=== PATIENT | female | born 1975 | race Caucasian/White ===

== ENCOUNTER 2024-04-23 13:14 | Outpatient (RCR) | payer MEDICAID, SELFPAY ==
--- NOTE | 2024-04-23 15:49 | CTCCONSULT_ITS ---
[facility] [address] [place], [place] [address] Consultation Note Date: 04/23/2024 MR#: [id number] Name: SUBHASH OSEGUERA : 1975 Dx: C50.112 Malignant neoplasm of central portion of left female breast Attending physician. Brigitte Espinoza [facility] Reason for consultation. Patient with recent diagnosis of left breast CA referred to the cancer [facility] er History of Present Illness: Patient is a 48-year-old lady noted to have a palpable left breast centra l region with ultrasound 02/24/2024 revealing BI-RADS 4. This is also confirmed by mammogram and bio psy 04/01/2024 revealed infiltrating ductal carcinoma ER/[place] positive Ki-67 30%. HER2/elio by FISH was negative. Patient now referred to the cancer treatment center. Past Medical History: Asthma history of tubal ligation tonsillectomy Meds. Melatonin Allergies none to meds Social History: 2 pregnancies 2 births works as a care provider Review of Systems: [place] the breast lump several months ago Physical Exam: General: Adequately nourished appearing lady no acute distress HEENT: Atraumatic normocephalic extraocular is intact no oral lesion no cervical or supraclavicular a denopathy. CV: Breast not examined today chest clear to auscultation heart regular rate and rhythm ABD: soft and organomegaly or tenderness EXT: No signs of clubbing or edema Assessment: Pt with T2 sized left retroareolar breast lesion. Ultrasound-guided biopsy positive for invasive ductal carcinoma ER/[place] positive HER2/elio negative by FISH. Plan:1. Patient to see Dr. Serrano medical oncologist soon. 2. Also has appointment with general surgeon 3. Patient was given various scenarios by which adjuvant therapy will be offered patient. 4. Thank you very much for allowing me to evaluate this patient. Cc: Brigitte Espinoza, [facility] Electronically signed by: Chau Hickey MD, DABR 04/23/2024 3:47 PM
== END 2024-05-12 23:59 | disposition home or self-care (01) ==
LOC: SCTC 13:14
PROVIDERS: PCP Student in an Organized Health Care Education/Training Program; Referring Provider Student in an Organized Health Care Education/Training Program; Visit Provider Internal Medicine Hematology & Oncology
DX: C50.112 Malignant neoplasm of central portion of left female breast (principal); Z17.0 Estrogen receptor positive status [ER+]; Z17.21 Progesterone receptor positive status; Z17.32 Human epidermal growth factor receptor 2 negative status
CPT/HCPCS: 99213; G0463

== ENCOUNTER 2024-05-20 08:25 | Outpatient (RCR) | payer MEDICAID, SELFPAY | END 2024-06-12 23:59 | disposition home or self-care (01) | LOC: SCTC 08:25 | PROVIDERS: PCP Student in an Organized Health Care Education/Training Program; Referring Provider Student in an Organized Health Care Education/Training Program; Visit Provider Internal Medicine Hematology & Oncology | DX: C50.112 Malignant neoplasm of central portion of left female breast (principal); Z17.0 Estrogen receptor positive status [ER+]; Z17.21 Progesterone receptor positive status; Z17.32 Human epidermal growth factor receptor 2 negative status | CPT/HCPCS: Q3014 ==

== ENCOUNTER → 2024-05-27 | Outpatient (CLI) | payer MEDICAID, SELFPAY ==
[2024-05-27 09:48] LABS: Basophils % (Auto) 0 % (0-2.5); Eosinophils # (Auto) 0.2 Thou/mm3 (0.0-0.5); Eosinophils % (Auto) 4 % (0-10); Hematocrit 43.2 % (36.0-46.0); Hemoglobin 14.6 g/dL (12.0-16.0); Immature Granulocytes % (Auto) 0 % (0-0); Immature Granulocytes Auto 0.01 Thou/mm3 (0.00-0.00); Lymphocytes # (Auto) 1.8 Thou/mm3 (1.0-4.8); Lymphocytes % (Auto) 38 % (10-50); Mean Corpuscular HGB Conc 33.8 g/dl (31.0-37.0); Mean Corpuscular Hemoglobin 29.9 pg (25.0-35.0); Mean Corpuscular Volume 88 fL (80-100); Monocytes # (Auto) 0.4 Thou/mm3 (0.0-0.8); Monocytes % (Auto) 8 % (0-12); Neutrophils # (Auto) 2.4 Thou/mm3 (1.8-7.7); Neutrophils % (Auto) 50 % (37-80); Nucleated Red Blood Cell % 0 /100 WBC (0); Platelet Count 305 Thou/mm3 (140-440); RDW Standard Deviation 37.1 fL (36.4-46.3); Red Blood Count 4.89 Miln/mm3 (4.00-5.20); White Blood Count 4.9 Thou/mm3 (3.6-11.0)
[2024-05-27 09:53] LABS: Alanine Aminotransferase 28 U/L (10-49); Albumin, Serum 4.8 gm/dL (3.5-5.0); Alkaline Phosphatase 102 U/L (46-116); Anion Gap 5 (7-16); Aspartate Amino Transferase 22 U/L (0-34); BUN/Creatinine Ratio 19 Ratio (12-20); Bilirubin,Total 0.6 mg/dL (0.3-1.2); Blood Urea Nitrogen 15 mg/dL (9-23); Calcium 9.7 mg/dL (8.3-10.6); Calcium (Corrected) 9.7 mg/dL (8.5-10.1); Carbon Dioxide 30.4 mMol/L (20.0-31.0); Chloride 105 mMol/L (98-107); Creatinine (Component) 0.8 mg/dL (0.6-1.3); Globulin 2.4 gm/dL (2.3-3.5); Glucose 109 mg/dL (74-106); Osmolality,Calculated 281 (275-295); Potassium 5.2 mMol/L (3.4-5.1); Sodium 140 mMol/L (136-145); Total Protein 7.2 gm/dL (5.7-8.2); eGFR > 60 See Note
[2024-05-27 10:18] LABS: CA 15-3 17.5 U/mL (<32.4)
== END | disposition home or self-care (01) ==
LOC: SCTO 08:18
PROVIDERS: PCP Physician Assistant; Referring Provider Internal Medicine Hematology & Oncology; Visit Provider Internal Medicine Hematology & Oncology
DX: C50.112 Malignant neoplasm of central portion of left female breast (principal)
CPT/HCPCS: 36415; 80053; 85025; 86300

== ENCOUNTER 2024-06-05 08:55 | Day surgery (SDC) | payer MEDICAID, SELFPAY ==
[2024-06-03 09:40] VITALS: BMI 44.6
--- NOTE | 2024-06-03 09:51 | EKG_ITS ---
[facility] Test Date: 2024-06-03 Pat Name: SUBHASH OSEGUERA Department: Room: - Gender: Female Panel Sewer: BEVERLY : 1975 Requested By: Felix Harris Order Number: [id number] Reading MD: Felix Harris Measurements Intervals Madeline Rate: 58 P: 35 AK: 168 QRS: -26 QRSD: 89 T: 37 QT: 400 QTc: 394 Interpretive Statements SINUS BRADYCARDIA BORDERLINE LEFT AXIS DEVIATION No previous ECG available for comparison /store/S0/[id number].pdf
[2024-06-03 11:12] LABS: Basophils # (Auto) 0.1 Thou/mm3 (0.0-0.2); Basophils % (Auto) 1 % (0-2.5); Eosinophils # (Auto) 0.3 Thou/mm3 (0.0-0.5); Eosinophils % (Auto) 5 % (0-10); Hematocrit 42.8 % (36.0-46.0); Hemoglobin 14.5 g/dL (12.0-16.0); Immature Granulocytes % (Auto) 0 % (0-0); Immature Granulocytes Auto 0.01 Thou/mm3 (0.00-0.00); Lymphocytes # (Auto) 2.4 Thou/mm3 (1.0-4.8); Lymphocytes % (Auto) 40 % (10-50); Mean Corpuscular HGB Conc 33.9 g/dl (31.0-37.0); Mean Corpuscular Hemoglobin 29.7 pg (25.0-35.0); Mean Corpuscular Volume 88 fL (80-100); Monocytes # (Auto) 0.5 Thou/mm3 (0.0-0.8); Monocytes % (Auto) 9 % (0-12); Neutrophils # (Auto) 2.6 Thou/mm3 (1.8-7.7); Neutrophils % (Auto) 44 % (37-80); Nucleated Red Blood Cell % 0 /100 WBC (0); Platelet Count 290 Thou/mm3 (140-440); RDW Standard Deviation 37.3 fL (36.4-46.3); Red Blood Count 4.89 Miln/mm3 (4.00-5.20); White Blood Count 5.9 Thou/mm3 (3.6-11.0)
[2024-06-03 11:20] LABS: Alanine Aminotransferase 29 U/L (10-49); Albumin, Serum 4.6 gm/dL (3.5-5.0); Albumin/Globulin Ratio 1.7 (1.2-2.2); Alkaline Phosphatase 109 U/L (46-116); Anion Gap 4 (7-16); Aspartate Amino Transferase 30 U/L (0-34); BUN/Creatinine Ratio 16 Ratio (12-20); Bilirubin,Total 0.5 mg/dL (0.3-1.2); Blood Urea Nitrogen 14 mg/dL (9-23); Calcium 9.7 mg/dL (8.3-10.6); Calcium (Corrected) 9.7 mg/dL (8.5-10.1); Carbon Dioxide 30.1 mMol/L (20.0-31.0); Chloride 105 mMol/L (98-107); Creatinine (Component) 0.9 mg/dL (0.6-1.3); Estimated Creatinine Clearance 104.7 mL/min (>60); Globulin 2.7 gm/dL (2.3-3.5); Glucose 99 mg/dL (74-106); Osmolality,Calculated 278 (275-295); Partial Thromboplastin Time 25.4 Seconds (22.0-36.0); Prothrombin Time 10.5 Seconds (9.0-12.2); Sodium 139 mMol/L (136-145); Total Protein 7.3 gm/dL (5.7-8.2); eGFR > 60 See Note
[2024-06-05] VITALS (8 sets, daily range): BP systolic 94–120; BP diastolic 57–78; PULSE 53–80; RESP 12–20; TEMP 36.2–36.5; O2SAT 93–99; BMI 44.4
--- NOTE | 2024-06-05 06:49 | XR_ITS ---
Examination: AP chest single view Technique one AP portable supine chest single view Exam date and time: June 05, 2024 11:20 AM INDICATIONS: Port-A-Cath insertion today. FINDINGS: Right internal jugular Port-A-Cath line projects right ventricle Prominent vascular congestion with enlargement cardiac contour No pneumothorax IMPRESSION: Right internal jugular Port-A-Cath line projects right ventricle
[2024-06-05] MEDS: RINGERS LACTATED 1000 ML 1,000 ML 20 ML IV (09:57)
[2024-06-05] MEDS: MIDAZOLAM INJ 1 MG/ML VIAL 2 ML 2 MG IV (10:11)
--- NOTE | 2024-06-05 12:22 | SUR.PHASEI ---
1222: Pt. AAOx4, vitals stable, breathing unlabored, no complaint of pain or nausea, dressing to right chest and neck CDI, no active bleed noted, report received from Bentley RAMSEY and MD Daniel.
--- NOTE | 2024-06-05 12:32 | PD.SUROPNT ---
Date of Procedure 06/05/24 Pre Op Diagnosis Carcinoma of the left breast requiring chemotherapy Stricture of veins Post Op Diagnosis Same Procedure Insertion of a Port-A-Cath through the right jugular vein using ultrasound guidance Findings Patient is morbidly obese and therefore subclavian could not be even seen on the ultrasound. Therefore I used a right jugular vein to insert regular sized Port-A-Cath called profuse Procedure Description After the patient was brought to the operating room he was placed in supine position. Patient is morbidly obese and it was difficult to see the subclavian vein using the ultrasound. Site-Rite ultrasound was used to identify the right jugular vein and I chose this for insertion of the Port-A-Cath. After the patient's chest and neck were prepped with chloreprep solution and draped I used a mini stick to get into the right jugular vein. Then I passed a small guidewire measuring 0.018 inch in diameter into the vein. Then this was switched over to a catheter to accommodate larger guidewire measuring 0.035 inches in diameter which was basically a J-wire. Then I used a 9 Ethiopian valved vessel dilator over the guidewire which was then pulled out. Then I introduced a 8 Ethiopian polyurethane catheter from the [employer] and positioned it on the distal part of the superior vena cava. An x-ray was obtained to confirm the position of the tip. The tip was about 20 cm from the insertion site. Then I made a small pocket 5 cm's below the entry site on the right chest below the clavicle to accommodate the port after injecting local anesthesia with 1% Xylocaine. Then I tunneled the polyurethane catheter from the entry site to this pocket in the chest wall and I connected it to regular port from [employer] called profuse using a catheter lock. Excellent blood return was obtained at the end of the procedure and this was flushed with heparinized saline. Then the port was attached to the chest wall muscle using 0 Ethibond sutures about 4 of them subcutaneous tissues was closed with 3-0 chromic and the skin by 5-0 nylon stitches. Dressing was applied with Adaptic and 4 x 4 and the patient tolerated the procedure well and left operating room in stable condition. Anesthesia other (General LMA) Pathology / specimen None Estimated Blood Loss 30 Surgeon Angel Mishra MD Surgical Staff Operation Date: 06/05/24 11:00 Case Staff Anesthesiologist: Giovani Pruitt RN First Assistant: Mariel Benitez
--- NOTE | 2024-06-05 12:41 | XR_ITS ---
Examination: AP chest single view Technique one AP portable upright chest single view Exam date 9: June 05, 2024 1250 hours INDICATIONS: Postop Port-A-Cath insertion FINDINGS: Right internal jugular Port-A-Cath tip SVC satisfactory position No pneumothorax Mild enlargement cardiac contour IMPRESSION: Right internal jugular Port-A-Cath tip SVC satisfactory position
[2024-06-05] MEDS: fentaNYL CIT INJ 50 mCg/ML AMP 2ML 25 MCG IV (12:46)
[2024-06-05] MEDS: ONDANSETRON INJ 2 MG/ML INJ 2 ML 4 MG IV (12:46)
[2024-06-05] MEDS: METOCLOPRAMIDE INJ 5 MG/ML VIAL 2 ML 10 MG IVP (12:55)
[2024-06-05] MEDS: ACETAMINOPHEN IVPB 1,000 MG/100 ML VIAL 250 MG IV (13:04)
--- NOTE | 2024-06-05 13:25 | SUR.PHASEII ---
1325: Pt. AAOx4, vitals stable, breathing unlabored, no complaint of pain or nausea, dressing to right upper chest and neck CDI, no active bleed noted, pt. tolerated sips of water well, pt. ambulated to wheelchair with steady gait and no assist, no complications. Gave discharge instructions to the pt. and his ride, both verbalized understanding and had no further questions. Pt. left with all personal belongings.
== END 2024-06-05 13:25 | disposition home or self-care (01) ==
PROVIDERS: PCP Family Medicine; Referring Provider Surgery; Visit Provider Surgery
PROC: (CPT 36561; principal; 2024-06-05 10:45)
DX: I87.1 Compression of vein (principal); E66.01 Morbid (severe) obesity due to excess calories; C50.912 Malignant neoplasm of unspecified site of left female breast; Z01.810 Encounter for preprocedural cardiovascular examination; Z68.41 Body mass index [BMI] 40.0-44.9, adult
CPT/HCPCS: 36561; 36415; 71045; 71046; 80053; 85025; 85610; 85730; 93005; A4217; A4649; C1788; C1894; J0131; J0461; J1100; J1643; J2250; J2405; J2704; J2765; J3010; J7120

== ENCOUNTER 2024-07-07 10:27 | Outpatient (RCR) | payer MEDICAID, SELFPAY ==
[2024-06-19 10:53] LABS: Basophils % (Auto) 1 % (0-2.5); Eosinophils # (Auto) 0.2 Thou/mm3 (0.0-0.5); Eosinophils % (Auto) 3 % (0-10); Hematocrit 39.8 % (36.0-46.0); Hemoglobin 13.7 g/dL (12.0-16.0); Immature Granulocytes % (Auto) 0 % (0-0); Immature Granulocytes Auto 0.03 Thou/mm3 (0.00-0.00); Lymphocytes # (Auto) 2.6 Thou/mm3 (1.0-4.8); Lymphocytes % (Auto) 32 % (10-50); Mean Corpuscular HGB Conc 34.4 g/dl (31.0-37.0); Mean Corpuscular Hemoglobin 30.1 pg (25.0-35.0); Mean Corpuscular Volume 88 fL (80-100); Monocytes # (Auto) 0.7 Thou/mm3 (0.0-0.8); Monocytes % (Auto) 9 % (0-12); Neutrophils # (Auto) 4.6 Thou/mm3 (1.8-7.7); Neutrophils % (Auto) 56 % (37-80); Nucleated Red Blood Cell % 0 /100 WBC (0); Platelet Count 295 Thou/mm3 (140-440); RDW Standard Deviation 37.9 fL (36.4-46.3); Red Blood Count 4.55 Miln/mm3 (4.00-5.20); White Blood Count 8.2 Thou/mm3 (3.6-11.0)
[2024-06-19 11:19] LABS: Alanine Aminotransferase 19 U/L (10-49); Albumin, Serum 4.2 gm/dL (3.5-5.0); Albumin/Globulin Ratio 1.8 (1.2-2.2); Alkaline Phosphatase 106 U/L (46-116); Anion Gap 8 (7-16); Aspartate Amino Transferase 17 U/L (0-34); BUN/Creatinine Ratio 16 Ratio (12-20); Bilirubin,Total 0.4 mg/dL (0.3-1.2); Blood Urea Nitrogen 11 mg/dL (9-23); Calcium 8.8 mg/dL (8.3-10.6); Calcium (Corrected) 8.8 mg/dL (8.5-10.1); Carbon Dioxide 25.4 mMol/L (20.0-31.0); Chloride 105 mMol/L (98-107); Creatinine (Component) 0.7 mg/dL (0.6-1.3); Globulin 2.4 gm/dL (2.3-3.5); Glucose 88 mg/dL (74-106); Osmolality,Calculated 274 (275-295); Potassium 4.1 mMol/L (3.4-5.1); Sodium 138 mMol/L (136-145); Total Protein 6.6 gm/dL (5.7-8.2); eGFR > 60 See Note
[2024-06-19 11:34] LABS: CA 15-3 15.5 U/mL (<32.4)
--- NOTE | 2024-06-21 22:12 | CTCFLWUP_ITS ---
Patient: SUBHASH OSEGUERA : 1975 Page 2 of 3 FOLLOW UP NOTE DATE OF SERVICE: 06/18/2024 NAME: SUBHASH OSEGUERA ACCOUNT: [id number] : 1975 AGE: 48 INTERVAL HISTORY: Doing well with no new problem ONCOLOGY HISTORY: DIAGNOSIS: Malignant neoplasm of central portion of left female breast [ICD10] C50.112 DATE OF DIAGNOSIS: 02/24/2024 left breast with invasive ductal carcinoma ER/[place] positive STAGE/TNM: T2NOMO TREATMENT HISTORY: Care?Plan Start?Date Cycle Day Intent AC?4?cy?DD?Taxol?wkly?12?wks 05/27/2024 2 7 Primary-Neoadjuvant HISTORY OF PRESENT ILLNESS: 48-year-old female with diagnosis of breast cancer . patient self palpated mass and found with cancer. Patient s grandmother of breast cancer. Patient is single parent.patient is worried. 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 melatonin - 3 mg Every day before sleep Medications Last Reconciled by Soha Schwartz MD on 05/20/2024 ALLERGIES: No Known Allergies REVIEW OF SYSTEMS: A complete 14-point review of systems was performed and is negative except as noted in interval history. PHYSICAL EXAMINATION: VITAL SIGNS: Temperature?99.1, B/P?133/92, Oxygen?Saturation?95% Weight?289?lbs (Change?since?05/20/24:?8?lbs) PAIN: 0 - No pain ECOG Performance Status: 0 - Asymptomatic and fully active GENERAL APPEARANCE: Appears well, in no apparent distress, appropriately interactive. HEENT: Normocephalic, no temporal wasting, normal conjunctiva, no scleral icterus, normal hearing, lips without lesions, neck normal range of motion. CARDIOVASCULAR: Not assessed. PULMONARY: Normal respiratory effort, no respiratory distress or use of accessory muscles, speaking in full sentences, no tachypnea. EXTREMITIES: No pedal edema or cyanosis. SKIN: Normal skin appearance. NEUROLOGIC: Alert and oriented x4. PSHYCHIATRIC: Appropriate affect, mood sad and anxious , behavior normal, intact thought and speech. Breast exam showed redness and indurated skin. LABORATORY DATA: I have personally reviewed and interpreted each of the patient?s relevant lab tests, abnormal findings are below: Date 06/19/24 ??WHITE?BLOOD?COUNT?(Thou/mm3) 8.2 ??RED?BLOOD?COUNT?(Miln/mm3) 4.55 ??HEMOGLOBIN?(gm/dl) 13.7 ??HEMATOCRIT?(%) 39.8 ??PLATELET?COUNT?(Thou/mm3) 295 ??NEUTROPHILS?%,?AUTO?(%) 56 ??LYMPH?%,?AUTO?(%) 32 ??NEUTROPHILS,?AUTO?(Thou/mm3) 4.6 ASSESSMENT/PLAN: ER [place] positive breast cancer I reviewed echocardiogram shows concentric hypertrophy Patient likely have uncontrolled blood pressure. Will refer to cardiology for tighter control of blood pressure Will proceed with chemotherapy AC and Taxol CBC CMP before chemotherapy Refer to cardiology RETURN TO CLINIC: 4 weeks BILLING AND COMPLIANCE: I reviewed external records from providers outside my specialty as summarized above. I spent a total of 50 minutes on this patient?s care on the day of their visit excluding time spent related to any billed procedures. This time includes time spent with the patient as well as time spent documenting in the medical record, reviewing patients records and tests, obtaining history, placing orders, communicating with other healthcare professionals, counseling the patient, family or caregiver, and/or care coordination for the diagnoses above. Electronically Signed by: Calderon Serrano MD T: 10:10 PM CC: PCP: Howie Le Referring: Howie Le This document was completed utilizing speech recognition software. Grammatical errors, random word insertions, pronoun errors, and incomplete sentences are an occasional consequence of this system due to software limitations, ambient noise, and hardware issues. Any formal questions or concerns about the content, text or information contained within the body of this dictation should be directly addressed to the provider for clarification.
[2024-07-03 09:38] LABS: Basophils % (Auto) 1 % (0-2.5); Eosinophils # (Auto) 0.1 Thou/mm3 (0.0-0.5); Eosinophils % (Auto) 1 % (0-10); Hemoglobin 12.9 g/dL (12.0-16.0); Immature Granulocytes % (Auto) 20 % (0-0); Immature Granulocytes Auto 1.54 Thou/mm3 (0.00-0.00); Lymphocytes # (Auto) 1.9 Thou/mm3 (1.0-4.8); Lymphocytes % (Auto) 25 % (10-50); Mean Corpuscular HGB Conc 33.9 g/dl (31.0-37.0); Mean Corpuscular Hemoglobin 29.6 pg (25.0-35.0); Mean Corpuscular Volume 87 fL (80-100); Monocytes # (Auto) 0.5 Thou/mm3 (0.0-0.8); Monocytes % (Auto) 6 % (0-12); Neutrophils # (Auto) 3.8 Thou/mm3 (1.8-7.7); Neutrophils % (Auto) 49 % (37-80); Nucleated Red Blood Cell % 0 /100 WBC (0); Platelet Count 254 Thou/mm3 (140-440); RDW Standard Deviation 37.2 fL (36.4-46.3); Red Blood Count 4.36 Miln/mm3 (4.00-5.20); White Blood Count 7.9 Thou/mm3 (3.6-11.0)
[2024-07-03 09:55] LABS: Alanine Aminotransferase 14 U/L (10-49); Albumin, Serum 3.9 gm/dL (3.5-5.0); Albumin/Globulin Ratio 1.6 (1.2-2.2); Alkaline Phosphatase 118 U/L (46-116); Anion Gap 9 (7-16); Aspartate Amino Transferase 11 U/L (0-34); BUN/Creatinine Ratio 14 Ratio (12-20); Bilirubin,Total 0.2 mg/dL (0.3-1.2); Blood Urea Nitrogen 10 mg/dL (9-23); Calcium 8.8 mg/dL (8.3-10.6); Calcium (Corrected) 8.9 mg/dL (8.5-10.1); Carbon Dioxide 26.1 mMol/L (20.0-31.0); Chloride 106 mMol/L (98-107); Creatinine (Component) 0.7 mg/dL (0.6-1.3); Globulin 2.4 gm/dL (2.3-3.5); Glucose 104 mg/dL (74-106); Osmolality,Calculated 280 (275-295); Potassium 3.9 mMol/L (3.4-5.1); Sodium 141 mMol/L (136-145); Total Protein 6.3 gm/dL (5.7-8.2); eGFR > 60 See Note
[2024-07-03 10:18] LABS: CA 15-3 19.3 U/mL (<32.4)
[2024-07-03 10:26] LABS: Path Review Blood Smear Sent to Pathologist
== END 2024-07-10 23:59 | disposition home or self-care (01) ==
LOC: SCTC 10:27
PROVIDERS: Internal Medicine Hematology & Oncology; PCP Family Medicine; Referring Provider Family Medicine; Visit Provider Radiology Therapeutic Radiology
DX: Z51.11 Encounter for antineoplastic chemotherapy (principal); C50.112 Malignant neoplasm of central portion of left female breast; Z17.0 Estrogen receptor positive status [ER+]; Z17.21 Progesterone receptor positive status; Z17.32 Human epidermal growth factor receptor 2 negative status
CPT/HCPCS: 36591; 80053; 85025; 86300; 96367; 96372; 96409; 96411; 96413; 96417; 99212; 99424; 99425; A4216; J1100; J1453; J1642; J2405; J2506; J7040; J7050; J9000; J9075; G0463

== ENCOUNTER 2024-08-10 08:12 | Outpatient (RCR) | payer MEDICAID, SELFPAY ==
[2024-07-17 12:27] LABS: Basophils # (Auto) 0.1 Thou/mm3 (0.0-0.2); Basophils % (Auto) 1 % (0-2.5); Eosinophils % (Auto) 0 % (0-10); Hematocrit 37.8 % (36.0-46.0); Hemoglobin 12.7 g/dL (12.0-16.0); Immature Granulocytes % (Auto) 15 % (0-0); Immature Granulocytes Auto 0.89 Thou/mm3 (0.00-0.00); Lymphocytes # (Auto) 1.5 Thou/mm3 (1.0-4.8); Lymphocytes % (Auto) 25 % (10-50); Mean Corpuscular HGB Conc 33.6 g/dl (31.0-37.0); Mean Corpuscular Hemoglobin 29.6 pg (25.0-35.0); Mean Corpuscular Volume 88 fL (80-100); Monocytes # (Auto) 0.6 Thou/mm3 (0.0-0.8); Monocytes % (Auto) 11 % (0-12); Neutrophils # (Auto) 2.8 Thou/mm3 (1.8-7.7); Neutrophils % (Auto) 48 % (37-80); Nucleated Red Blood Cell # 0.02 Thou/mm3 (0.00-0.00); Nucleated Red Blood Cell % 0 /100 WBC (0); Platelet Count 298 Thou/mm3 (140-440); RDW Standard Deviation 39.2 fL (36.4-46.3); Red Blood Count 4.29 Miln/mm3 (4.00-5.20); White Blood Count 5.8 Thou/mm3 (3.6-11.0)
[2024-07-17 12:38] LABS: Alanine Aminotransferase 17 U/L (10-49); Albumin/Globulin Ratio 1.6 (1.2-2.2); Alkaline Phosphatase 119 U/L (46-116); Anion Gap 8 (7-16); Aspartate Amino Transferase 18 U/L (0-34); BUN/Creatinine Ratio 10 Ratio (12-20); Bilirubin,Total 0.2 mg/dL (0.3-1.2); Blood Urea Nitrogen 7 mg/dL (9-23); Calcium 8.9 mg/dL (8.3-10.6); Calcium (Corrected) 8.9 mg/dL (8.5-10.1); Carbon Dioxide 27.3 mMol/L (20.0-31.0); Chloride 108 mMol/L (98-107); Creatinine (Component) 0.7 mg/dL (0.6-1.3); Globulin 2.5 gm/dL (2.3-3.5); Glucose 91 mg/dL (74-106); Osmolality,Calculated 282 (275-295); Potassium 3.7 mMol/L (3.4-5.1); Sodium 143 mMol/L (136-145); Total Protein 6.5 gm/dL (5.7-8.2); eGFR > 60 See Note
[2024-07-31 11:33] LABS: Basophils # (Auto) 0.1 Thou/mm3 (0.0-0.2); Basophils % (Auto) 2 % (0-2.5); Eosinophils % (Auto) 1 % (0-10); Hematocrit 35.4 % (36.0-46.0); Hemoglobin 12.1 g/dL (12.0-16.0); Immature Granulocytes % (Auto) 17 % (0-0); Immature Granulocytes Auto 0.95 Thou/mm3 (0.00-0.00); Lymphocytes # (Auto) 1.6 Thou/mm3 (1.0-4.8); Lymphocytes % (Auto) 28 % (10-50); Mean Corpuscular HGB Conc 34.2 g/dl (31.0-37.0); Mean Corpuscular Hemoglobin 29.7 pg (25.0-35.0); Mean Corpuscular Volume 87 fL (80-100); Monocytes # (Auto) 0.6 Thou/mm3 (0.0-0.8); Monocytes % (Auto) 11 % (0-12); Neutrophils # (Auto) 2.4 Thou/mm3 (1.8-7.7); Neutrophils % (Auto) 42 % (37-80); Nucleated Red Blood Cell # 0.03 Thou/mm3 (0.00-0.00); Nucleated Red Blood Cell % 1 /100 WBC (0); Platelet Count 301 Thou/mm3 (140-440); RDW Standard Deviation 39.6 fL (36.4-46.3); Red Blood Count 4.08 Miln/mm3 (4.00-5.20); White Blood Count 5.7 Thou/mm3 (3.6-11.0)
[2024-07-31 11:51] LABS: Cardiac Risk Estimate 4.5 RATIO (3.7-5.6); Cholesterol 138 mg/dL (132-200); HDL Cholesterol 31 mg/dL (40-60); LDL Cholesterol,Calculated 80 mg/dL (0-130); Triglycerides 136 mg/dL (30-150)
[2024-07-31 11:59] LABS: Alanine Aminotransferase 14 U/L (10-49); Albumin, Serum 4.2 gm/dL (3.5-5.0); Albumin/Globulin Ratio 1.7 (1.2-2.2); Alkaline Phosphatase 113 U/L (46-116); Anion Gap 10 (7-16); Aspartate Amino Transferase 20 U/L (0-34); BUN/Creatinine Ratio 9 Ratio (12-20); Bilirubin,Total 0.2 mg/dL (0.3-1.2); Blood Urea Nitrogen 6 mg/dL (9-23); Calcium 9.2 mg/dL (8.3-10.6); Calcium (Corrected) 9.2 mg/dL (8.5-10.1); Carbon Dioxide 25.1 mMol/L (20.0-31.0); Chloride 105 mMol/L (98-107); Creatinine (Component) 0.7 mg/dL (0.6-1.3); Globulin 2.5 gm/dL (2.3-3.5); Glucose 92 mg/dL (74-106); Osmolality,Calculated 277 (275-295); Potassium 4.4 mMol/L (3.4-5.1); Sodium 140 mMol/L (136-145); Total Protein 6.7 gm/dL (5.7-8.2); eGFR > 60 See Note
[2024-07-31 12:07] LABS: CA 15-3 34.2 U/mL (<32.4)
[2024-08-07 11:40] LABS: Basophils # (Auto) 0.1 Thou/mm3 (0.0-0.2); Basophils % (Auto) 1 % (0-2.5); Eosinophils % (Auto) 1 % (0-10); Hematocrit 33.5 % (36.0-46.0); Hemoglobin 11.8 g/dL (12.0-16.0); Immature Granulocytes % (Auto) 2 % (0-0); Immature Granulocytes Auto 0.12 Thou/mm3 (0.00-0.00); Lymphocytes # (Auto) 1.3 Thou/mm3 (1.0-4.8); Lymphocytes % (Auto) 23 % (10-50); Mean Corpuscular HGB Conc 35.2 g/dl (31.0-37.0); Mean Corpuscular Hemoglobin 30.3 pg (25.0-35.0); Mean Corpuscular Volume 86 fL (80-100); Monocytes # (Auto) 0.9 Thou/mm3 (0.0-0.8); Monocytes % (Auto) 16 % (0-12); Neutrophils # (Auto) 3.2 Thou/mm3 (1.8-7.7); Neutrophils % (Auto) 56 % (37-80); Nucleated Red Blood Cell % 0 /100 WBC (0); Platelet Count 314 Thou/mm3 (140-440); RDW Standard Deviation 43.4 fL (36.4-46.3); White Blood Count 5.6 Thou/mm3 (3.6-11.0)
[2024-08-07 12:26] LABS: CA 15-3 33.8 U/mL (<32.4)
[2024-08-07 13:16] LABS: Alanine Aminotransferase 14 U/L (10-49); Albumin/Globulin Ratio 1.7 (1.2-2.2); Alkaline Phosphatase 90 U/L (46-116); Anion Gap 9 (7-16); Aspartate Amino Transferase 18 U/L (0-34); BUN/Creatinine Ratio 11 Ratio (12-20); Blood Urea Nitrogen 9 mg/dL (9-23); Calcium 9.1 mg/dL (8.3-10.6); Calcium (Corrected) 9.1 mg/dL (8.5-10.1); Carbon Dioxide 24.2 mMol/L (20.0-31.0); Chloride 106 mMol/L (98-107); Creatinine (Component) 0.8 mg/dL (0.6-1.3); Globulin 2.3 gm/dL (2.3-3.5); Glucose 132 mg/dL (74-106); Osmolality,Calculated 278 (275-295); Potassium 4.4 mMol/L (3.4-5.1); Sodium 139 mMol/L (136-145); Total Protein 6.3 gm/dL (5.7-8.2); eGFR > 60 See Note
[2024-08-07 14:13] LABS: Bilirubin,Total 0.4 mg/dL (0.3-1.2)
--- NOTE | 2024-08-09 22:44 | CTCFLWUP_ITS ---
Patient: SUBHASH OSEGUERA : 1975 Page 2 of 2 FOLLOW UP NOTE DATE OF SERVICE: 07/22/2024 NAME: SUBHASH OSEGUERA ACCOUNT: [id number] : 1975 AGE: 48 INTERVAL HISTORY: Doing well with no new problem ONCOLOGY HISTORY: DIAGNOSIS: Malignant neoplasm of central portion of left female breast [ICD10] C50.112 DATE OF DIAGNOSIS: 02/24/2024 left breast with invasive ductal carcinoma ER/[place] positive STAGE/TNM: T2NOMO TREATMENT HISTORY: Care?Plan Start?Date Cycle Day Intent AC?4?cy?DD?Taxol?wkly?12?wks 05/27/2024 2 7 Primary-Neoadjuvant HISTORY OF PRESENT ILLNESS: 48-year-old female with diagnosis of breast cancer . patient self palpated mass and found with cancer. Patient s grandmother of breast cancer. Patient is single parent.patient is worried. 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 melatonin - 3 mg Every day before sleep 2. Pepcid - 20 mg 1 tab Daily Medications Last Reconciled by Yi Gerardo MA on 07/22/2024 ALLERGIES: No Known Allergies REVIEW OF SYSTEMS: A complete 14-point review of systems was performed and is negative except as noted in interval history. PHYSICAL EXAMINATION: VITAL SIGNS: Temperature?97.4, B/P?107/77, Oxygen?Saturation?98% PAIN: 0 - No pain ECOG Performance Status: 0 - Asymptomatic and fully active GENERAL APPEARANCE: Appears well, in no apparent distress, appropriately interactive. HEENT: Normocephalic, no temporal wasting, normal conjunctiva, no scleral icterus, normal hearing, lips without lesions, neck normal range of motion. CARDIOVASCULAR: Not assessed. PULMONARY: Normal respiratory effort, no respiratory distress or use of accessory muscles, speaking in full sentences, no tachypnea. EXTREMITIES: No pedal edema or cyanosis. SKIN: Normal skin appearance. NEUROLOGIC: Alert and oriented x4. PSHYCHIATRIC: Appropriate affect, mood sad and anxious , behavior normal, intact thought and speech. Breast exam showed redness and indurated skin. LABORATORY DATA: I have personally reviewed and interpreted each of the patient?s relevant lab tests, abnormal findings are below: Date 07/31/24 08/07/24 ??WHITE?BLOOD?COUNT?(Thou/mm3) 5.7 5.6 ??RED?BLOOD?COUNT?(Miln/mm3) 4.08 3.90?L ??HEMOGLOBIN?(gm/dl) 12.1 11.8?L ??HEMATOCRIT?(%) 35.4?L 33.5?L ??PLATELET?COUNT?(Thou/mm3) 301 314 ??NEUTROPHILS?%,?AUTO?(%) 42 56 ??LYMPH?%,?AUTO?(%) 28 23 ??NEUTROPHILS,?AUTO?(Thou/mm3) 2.4 3.2 ??GLUCOSE,RANDOM?(mg/dL) 92 132?H ??BLOOD?UREA?NITROGEN?(mg/dL) 6?L 9 ??CREATININE?(mg/dL) 0.70 0.80 ??SODIUM?(mmol/L) 140 139 ??POTASSIUM?(mmol/L) 4.4 4.4 ??CHLORIDE?(mmol/L) 105 106 ??CrCl?(CandG)?(ml/min) 131.08 115.37 ??AST/SGOT?(Unit/L) 20 18 ??ALT/SGPT?(Unit/L) 14 14 ??ALKALINE?PHOSPHATASE?(Unit/L) 113 90 ??BILIRUBIN,?TOTAL?(mg/dL) 0.2?L 0.4 ??PROTEIN?TOTAL?(gm/dl) 6.7 6.3 ??ALBUMIN,?SERUM?(gm/dl) 4.2 4.0 ??GLOBULIN?(gm/dl) 2.5 2.3 ??ALBUMIN/GLOBULIN?RATIO 1.7 1.7 ??CALCIUM,?SERUM?(mg/dL) 9.2 9.1 ??CALCIUM?SERUM?(CORRECTED)?(mg/dL) 9.2 9.1 ASSESSMENT/PLAN: ER [place] positive breast cancer I reviewed echocardiogram shows concentric hypertrophy Patient likely have uncontrolled blood pressure. Will refer to cardiology for tighter control of blood pressure Will proceed with chemotherapy AC and Taxol CBC CMP before chemotherapy Refer to cardiology ORDERS: Order # Description [id number] Comprehensive Metabolic Panel - 12 + CBC with Auto Diff + MD Follow Up 2 Months [id number] Cardiac ECHO RETURN TO CLINIC: BILLING AND COMPLIANCE: I reviewed external records from providers outside my specialty as summarized above. I spent a total of 50 minutes on this patient?s care on the day of their visit excluding time spent related to any billed procedures. This time includes time spent with the patient as well as time spent documenting in the medical record, reviewing patients records and tests, obtaining history, placing orders, communicating with other healthcare professionals, counseling the patient, family or caregiver, and/or care coordination for the diagnoses above. Electronically Signed by: Calderon Serrano MD T: 10:42 PM CC: PCP: Howie Le Referring: Howie Le This document was completed utilizing speech recognition software. Grammatical errors, random word insertions, pronoun errors, and incomplete sentences are an occasional consequence of this system due to software limitations, ambient noise, and hardware issues. Any formal questions or concerns about the content, text or information contained within the body of this dictation should be directly addressed to the provider for clarification.
== END 2024-08-10 23:59 | disposition home or self-care (01) ==
LOC: SCTC 08:12
PROVIDERS: PCP Family Medicine; Referring Provider Family Medicine; Visit Provider Internal Medicine Hematology & Oncology
DX: Z51.11 Encounter for antineoplastic chemotherapy (principal); C50.112 Malignant neoplasm of central portion of left female breast; Z17.0 Estrogen receptor positive status [ER+]; Z17.21 Progesterone receptor positive status
CPT/HCPCS: 36415; 80053; 80061; 85025; 86300; 96360; 96367; 96372; 96411; 96413; 99212; A4216; J1100; J1453; J1642; J2405; J2506; J7030; J7040; J7050; J9000; J9075; G0463

== ENCOUNTER → 2024-08-18 | Outpatient (CLI) | payer MEDICAID, SELFPAY ==
--- NOTE | 2024-08-18 | ECHO_ITS ---
Transthoracic Echo Report Ht (in): 67 Wt (lb): 275 Exam Location: Echo Lab Status: Outpatient Commercial Airplane Pilot: ANNA Aragon^^^^ Indications: Procedure Performed: BP: 117 / 78 HR: 79 Rhythm: Sinus Technical Quality: Fair MEASUREMENTS (Male / Female) Normal Values 2D ECHO LV Diastolic Diameter PLAX 5.1 cm 4.2 - 5.9 / 3.9 - 5.3 cm LV Systolic Diameter PLAX 3.5 cm IVS Diastolic Thickness 0.9 cm 0.6 - 1.0 / 0.6 - 0.9 cm LVPW Diastolic Thickness 1.0 cm 0.6 - 1.0 / 0.6 - 0.9 cm LV Relative Wall Thickness 0.4 LVOT Diameter 1.9 cm Aortic Root Diameter 3.2 cm LA Systolic Diameter LX 4.1 cm 3.0 - 4.0 / 2.7 - 3.8 cm LV Ejection Fraction MOD BP 58.0 % >= 55 % LV Cardiac Index MOD BP 1661.2 cm?/min?m? LV Ejection Fraction MOD 4C 64.2 % LV Cardiac Index MOD 4C 2095.5 cm?/min?m? LV Ejection Fraction 4C AL 68.2 % LV Cardiac Index 4C AL 2348.9 cm?/min?m? LV Ejection Fraction MOD 2C 53.3 % LV Cardiac Index MOD 2C 1204.7 cm?/min?m? LV Ejection Fraction 2C AL 54.4 % LV Cardiac Index 2C AL 1232.5 cm?/min?m? LA Volume Index 38.2 cm?/m? 16 - 28 cm?/m? Ascending Aorta Diameter 3.2 cm DOPPLER AV Peak Velocity 124.5 cm/s AV Peak Gradient 6.2 mmHg AV Mean Gradient 3.5 mmHg AV Velocity Time Integral 24.0 cm LVOT Peak Velocity 107.0 cm/s LVOT Peak Gradient 4.6 mmHg LVOT Velocity Time Integral 23.5 cm LVOT Cardiac Index 2116.8 cm?/min?m? AV Area Cont Eq vti 2.8 cm? AV Area Cont Eq pk 2.4 cm? MV Area PHT 4.0 cm? Mitral E Point Velocity 79.0 cm/s Mitral A Point Velocity 67.3 cm/s Mitral E to A Ratio 1.2 LV E' Lateral Velocity 8.0 cm/s Mitral E to LV E' Lateral Ratio 9.9 LV E' Septal Velocity 6.3 cm/s Mitral E to LV E' Septal Ratio 12.6 TR Peak Velocity 235.0 cm/s TR Peak Gradient 22.1 mmHg PV Peak Velocity 103.0 cm/s PV Peak Gradient 4.2 mmHg RVOT Peak Velocity 73.3 cm/s FINDINGS Left Ventricle Normal left ventricular size, wall thickness, systolic function. Normal left ventricular diastolic filling pattern for age. The ejection fraction is visually estimated at 55-60%. Right Ventricle The right ventricle is normal in size and systolic function. The estimated right ventricular systolic pressure, 28 mmHg. Left Atrium Upper normal left atrial size. Right Atrium The right atrium is normal by two-dimensional imaging, color flow and Doppler imaging with no structural abnormalities, no thrombus formation present. Atrial Septum The interatrial septum appears normal with no evidence of a shunt. Aorta The aorta is normal by two-dimensional, color flow and Doppler interrogation. Mitral Valve Trace mitral regurgitation. Mild mitral annular calcification. Aortic Valve The aortic valve is trileaflet and normal by two-dimensional, color flow and Doppler interrogation. There is no significant aortic valve regurgitation. Tricuspid Valve There is mild tricuspid valve regurgitation. Pulmonic Valve Trivial pulmonic valve regurgitation. Vessels The pulmonary artery appears normal. The inferior vena cava pulmonary and hepatic veins appear normal. Pericardium The pericardium is normal by two-dimensional imaging. There is no significant pericardial effusion. CONCLUSIONS Indication: Malignancy Normal LV size and function with an estimated EF of 60 to 65%. Stage I diastolic dysfunction. Normal RV size and function. Normal RVSP at 28 mmHg. Trace MR and TR Keenan Estrada (Electronically Signed) Final Date: 18 August 2024 20:01
== END | disposition home or self-care (01) ==
PROVIDERS: PCP Family Medicine; Referring Provider Internal Medicine Hematology & Oncology; Visit Provider Internal Medicine Hematology & Oncology
DX: I08.1 Rheumatic disorders of both mitral and tricuspid valves (principal); I50.30 Unspecified diastolic (congestive) heart failure; C50.112 Malignant neoplasm of central portion of left female breast
CPT/HCPCS: 93306

== ENCOUNTER 2024-09-07 07:56 | Outpatient (RCR) | payer MEDICAID, SELFPAY ==
[2024-08-31 08:22] LABS: Basophils # (Auto) 0.1 Thou/mm3 (0.0-0.2); Basophils % (Auto) 1 % (0-2.5); Eosinophils # (Auto) 0.1 Thou/mm3 (0.0-0.5); Eosinophils % (Auto) 1 % (0-10); Hematocrit 33.3 % (36.0-46.0); Hemoglobin 11.5 g/dL (12.0-16.0); Immature Granulocytes % (Auto) 1 % (0-0); Immature Granulocytes Auto 0.05 Thou/mm3 (0.00-0.00); Lymphocytes % (Auto) 19 % (10-50); Mean Corpuscular HGB Conc 34.5 g/dl (31.0-37.0); Mean Corpuscular Volume 90 fL (80-100); Monocytes % (Auto) 18 % (0-12); Neutrophils # (Auto) 3.2 Thou/mm3 (1.8-7.7); Neutrophils % (Auto) 59 % (37-80); Nucleated Red Blood Cell % 0 /100 WBC (0); Platelet Count 339 Thou/mm3 (140-440); RDW Standard Deviation 47.8 fL (36.4-46.3); Red Blood Count 3.71 Miln/mm3 (4.00-5.20); White Blood Count 5.4 Thou/mm3 (3.6-11.0)
[2024-08-31 08:48] LABS: Alanine Aminotransferase 21 U/L (10-49); Albumin, Serum 4.1 gm/dL (3.5-5.0); Albumin/Globulin Ratio 1.6 (1.2-2.2); Alkaline Phosphatase 85 U/L (46-116); Anion Gap 7 (7-16); Aspartate Amino Transferase 23 U/L (0-34); BUN/Creatinine Ratio 11 Ratio (12-20); Bilirubin,Total 0.5 mg/dL (0.3-1.2); Blood Urea Nitrogen 8 mg/dL (9-23); Calcium 8.9 mg/dL (8.3-10.6); Calcium (Corrected) 8.9 mg/dL (8.5-10.1); Chloride 108 mMol/L (98-107); Creatinine (Component) 0.7 mg/dL (0.6-1.3); Globulin 2.5 gm/dL (2.3-3.5); Glucose 144 mg/dL (74-106); Osmolality,Calculated 280 (275-295); Potassium 3.9 mMol/L (3.4-5.1); Sodium 140 mMol/L (136-145); Total Protein 6.6 gm/dL (5.7-8.2); eGFR > 60 See Note
[2024-08-31 09:15] LABS: CA 15-3 36.5 U/mL (<32.4)
[2024-09-07 08:40] LABS: Basophils # (Auto) 0.1 Thou/mm3 (0.0-0.2); Basophils % (Auto) 1 % (0-2.5); Eosinophils # (Auto) 0.1 Thou/mm3 (0.0-0.5); Eosinophils % (Auto) 2 % (0-10); Hemoglobin 11.2 g/dL (12.0-16.0); Immature Granulocytes % (Auto) 2 % (0-0); Immature Granulocytes Auto 0.12 Thou/mm3 (0.00-0.00); Lymphocytes # (Auto) 1.1 Thou/mm3 (1.0-4.8); Lymphocytes % (Auto) 20 % (10-50); Mean Corpuscular HGB Conc 33.9 g/dl (31.0-37.0); Mean Corpuscular Hemoglobin 30.6 pg (25.0-35.0); Mean Corpuscular Volume 90 fL (80-100); Monocytes # (Auto) 0.7 Thou/mm3 (0.0-0.8); Monocytes % (Auto) 13 % (0-12); Neutrophils # (Auto) 3.4 Thou/mm3 (1.8-7.7); Neutrophils % (Auto) 62 % (37-80); Nucleated Red Blood Cell % 0 /100 WBC (0); Platelet Count 367 Thou/mm3 (140-440); RDW Standard Deviation 45.7 fL (36.4-46.3); Red Blood Count 3.66 Miln/mm3 (4.00-5.20); White Blood Count 5.5 Thou/mm3 (3.6-11.0)
[2024-09-07 09:12] LABS: Alanine Aminotransferase 28 U/L (10-49); Albumin/Globulin Ratio 1.7 (1.2-2.2); Alkaline Phosphatase 91 U/L (46-116); Anion Gap 7 (7-16); Aspartate Amino Transferase 21 U/L (0-34); BUN/Creatinine Ratio 13 Ratio (12-20); Bilirubin,Total 0.4 mg/dL (0.3-1.2); Blood Urea Nitrogen 9 mg/dL (9-23); Calcium 8.9 mg/dL (8.3-10.6); Calcium (Corrected) 8.9 mg/dL (8.5-10.1); Carbon Dioxide 25.3 mMol/L (20.0-31.0); Chloride 108 mMol/L (98-107); Creatinine (Component) 0.7 mg/dL (0.6-1.3); Globulin 2.3 gm/dL (2.3-3.5); Glucose 122 mg/dL (74-106); Osmolality,Calculated 279 (275-295); Potassium 4.1 mMol/L (3.4-5.1); Sodium 140 mMol/L (136-145); Total Protein 6.3 gm/dL (5.7-8.2); eGFR > 60 See Note
[2024-09-07 09:29] LABS: CA 15-3 36.7 U/mL (<32.4)
== END 2024-09-09 23:59 | disposition home or self-care (01) ==
LOC: SCTC 07:56
PROVIDERS: PCP Family Medicine; Referring Provider Family Medicine; Visit Provider Internal Medicine Hematology & Oncology
DX: Z51.11 Encounter for antineoplastic chemotherapy (principal); C50.112 Malignant neoplasm of central portion of left female breast; Z17.0 Estrogen receptor positive status [ER+]; Z17.21 Progesterone receptor positive status; Z17.32 Human epidermal growth factor receptor 2 negative status
CPT/HCPCS: 80053; 85025; 86300; 96367; 96372; 96375; 96413; 96415; 99211; A4216; J1100; J1200; J1453; J1642; J2405; J2506; J3490; J7040; J7050; J9267; A9270; G0463

== ENCOUNTER 2024-09-28 08:33 | Outpatient (RCR) | payer MEDICAID, SELFPAY ==
[2024-09-14 09:05] LABS: Basophils % (Auto) 1 % (0-2.5); Eosinophils # (Auto) 0.2 Thou/mm3 (0.0-0.5); Eosinophils % (Auto) 4 % (0-10); Hematocrit 30.3 % (36.0-46.0); Hemoglobin 10.5 g/dL (12.0-16.0); Immature Granulocytes % (Auto) 2 % (0-0); Immature Granulocytes Auto 0.08 Thou/mm3 (0.00-0.00); Lymphocytes # (Auto) 0.9 Thou/mm3 (1.0-4.8); Lymphocytes % (Auto) 22 % (10-50); Mean Corpuscular HGB Conc 34.7 g/dl (31.0-37.0); Mean Corpuscular Hemoglobin 31.8 pg (25.0-35.0); Mean Corpuscular Volume 92 fL (80-100); Monocytes # (Auto) 0.5 Thou/mm3 (0.0-0.8); Monocytes % (Auto) 11 % (0-12); Neutrophils # (Auto) 2.6 Thou/mm3 (1.8-7.7); Neutrophils % (Auto) 61 % (37-80); Nucleated Red Blood Cell % 0 /100 WBC (0); Platelet Count 325 Thou/mm3 (140-440); RDW Standard Deviation 46.9 fL (36.4-46.3); White Blood Count 4.2 Thou/mm3 (3.6-11.0)
[2024-09-14 09:22] LABS: Alanine Aminotransferase 20 U/L (10-49); Albumin/Globulin Ratio 1.7 (1.2-2.2); Alkaline Phosphatase 100 U/L (46-116); Anion Gap 7 (7-16); Aspartate Amino Transferase 19 U/L (0-34); BUN/Creatinine Ratio 13 Ratio (12-20); Bilirubin,Total 0.4 mg/dL (0.3-1.2); Blood Urea Nitrogen 9 mg/dL (9-23); Calcium 8.3 mg/dL (8.3-10.6); Calcium (Corrected) 8.3 mg/dL (8.5-10.1); Carbon Dioxide 25.2 mMol/L (20.0-31.0); Chloride 108 mMol/L (98-107); Creatinine (Component) 0.7 mg/dL (0.6-1.3); Globulin 2.3 gm/dL (2.3-3.5); Glucose 120 mg/dL (74-106); Osmolality,Calculated 279 (275-295); Sodium 140 mMol/L (136-145); Total Protein 6.3 gm/dL (5.7-8.2); eGFR > 60 See Note
[2024-09-14 09:39] LABS: CA 15-3 37.8 U/mL (<32.4)
[2024-09-21 09:48] LABS: Basophils % (Auto) 1 % (0-2.5); Eosinophils # (Auto) 0.1 Thou/mm3 (0.0-0.5); Eosinophils % (Auto) 3 % (0-10); Hemoglobin 10.3 g/dL (12.0-16.0); Immature Granulocytes % (Auto) 3 % (0-0); Lymphocytes # (Auto) 0.8 Thou/mm3 (1.0-4.8); Lymphocytes % (Auto) 22 % (10-50); Mean Corpuscular HGB Conc 35.5 g/dl (31.0-37.0); Mean Corpuscular Hemoglobin 31.3 pg (25.0-35.0); Mean Corpuscular Volume 88 fL (80-100); Monocytes # (Auto) 0.4 Thou/mm3 (0.0-0.8); Monocytes % (Auto) 11 % (0-12); Neutrophils # (Auto) 2.2 Thou/mm3 (1.8-7.7); Neutrophils % (Auto) 61 % (37-80); Nucleated Red Blood Cell % 0 /100 WBC (0); Platelet Count 319 Thou/mm3 (140-440); Red Blood Count 3.29 Miln/mm3 (4.00-5.20); White Blood Count 3.6 Thou/mm3 (3.6-11.0)
[2024-09-21 10:06] LABS: Alanine Aminotransferase 22 U/L (10-49); Albumin, Serum 3.9 gm/dL (3.5-5.0); Albumin/Globulin Ratio 1.7 (1.2-2.2); Alkaline Phosphatase 90 U/L (46-116); Anion Gap 9 (7-16); Aspartate Amino Transferase 20 U/L (0-34); BUN/Creatinine Ratio 17 Ratio (12-20); Bilirubin,Total 0.4 mg/dL (0.3-1.2); Blood Urea Nitrogen 10 mg/dL (9-23); Calcium 8.6 mg/dL (8.3-10.6); Calcium (Corrected) 8.7 mg/dL (8.5-10.1); Carbon Dioxide 25.5 mMol/L (20.0-31.0); Chloride 106 mMol/L (98-107); Creatinine (Component) 0.6 mg/dL (0.6-1.3); Globulin 2.3 gm/dL (2.3-3.5); Glucose 141 mg/dL (74-106); Osmolality,Calculated 280 (275-295); Potassium 3.9 mMol/L (3.4-5.1); Sodium 140 mMol/L (136-145); Total Protein 6.2 gm/dL (5.7-8.2); eGFR > 60 See Note
--- NOTE | 2024-09-22 14:48 | CTCFLWUP_ITS ---
Patient: SUBHASH OSEGUERA : 1975 Page 2 of 2 FOLLOW UP NOTE DATE OF SERVICE: 09/22/2024 NAME: SUBHASH OSEGUERA ACCOUNT: [id number] : 1975 AGE: 48 INTERVAL HISTORY: Subjective: Chief Complaint Follow-up for left breast cancer treatment, indigestion, high blood pressure, fatigue, numbness and tingling in extremities History of Present Illness Feliberto Grady is a patient with left breast cancer, ER-NC positive, who is currently undergoing chemotherapy treatment. She presents for follow-up and discussion of recent test results. The patient reports ongoing indigestion, which she manages with Pepcid. She expresses concern about the need for surgery and inquires about radiation therapy. The patient mentions experiencing significant fatigue as a side effect of her chemotherapy, stating that she used to work 10-hour days but now lacks energy for basic tasks like standing in the kitchen or paying for groceries without assistance. She also notes numbness and tingling associated with her weekly chemotherapy, which she manages using hand-cold mittens. The patient reports that her blood work has been really good recently. She mentions having her blood pressure taken weekly at the clinic, with today's reading being 133/94. The patient expresses discomfort with her chemotherapy port, stating that she can't wear a seatbelt because the port is at an angle and makes her nauseated. She requests to have the port removed during her upcoming surgery. Regarding her treatment adherence, the patient continues with her chemotherapy regimen, with 8 more treatments remaining out of a total of 12. She uses cold mittens and socks to prevent neuropathy during Taxol treatments. The patient reports that she doesn't require medication for nausea with her current chemotherapy regimen, unlike her previous experience with cyclophosphamide. The patient expresses a preference to see Dr. Noland for her upcoming surgery, citing dissatisfaction with Dr. Dawson due to a comment he made before her port surgery. She requests that her surgery be scheduled after her last chemotherapy treatment, which is set for November 28. Medications and Supplements - Pepcid - Taken for indigestion - Taxol - Causes numbness and tingling - Uses hand-cold mittens to manage side effects - Benadryl - Helps with side effects of chemotherapy - Liquid form caused a severe reaction - Adriamycin - Past chemotherapy medication - Cyclophosphamide - Past chemotherapy medication - Caused nausea and vomiting Review of Systems General: Positive for fatigue, lack of energy. Gastrointestinal: Positive for indigestion. Neurological: Positive for numbness and tingling. Psychiatric: Positive for anxiety. Objective: Vital Signs - Blood Pressure: 133/94 mmHg Laboratory, Imaging, and Diagnostic Test Results - Netera test: Negative (no cancer detected in blood) - Echocardiogram: Negative ONCOLOGY HISTORY: DIAGNOSIS: Malignant neoplasm of central portion of left female breast [ICD10] C50.112 DATE OF DIAGNOSIS: 02/24/2024 left breast with invasive ductal carcinoma ER/NC positive STAGE/TNM: [id number] TREATMENT HISTORY: Care?Plan Start?Date Cycle Day Intent AC?4?cy?DD?Taxol?wkly?12?wks 05/27/2024 2 7 Primary-Neoadjuvant HISTORY OF PRESENT ILLNESS: 48-year-old female with diagnosis of breast cancer . patient self palpated mass and found with cancer. Patient s grandmother of breast cancer. Patient is single parent.patient is worried. 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 melatonin - 3 mg Every day before sleep 2. Pepcid - 20 mg 1 tab Daily Medications Last Reconciled by Miryam Blood MA on 09/22/2024 ALLERGIES: No Known Allergies REVIEW OF SYSTEMS: A complete 14-point review of systems was performed and is negative except as noted in interval history. PHYSICAL EXAMINATION: VITAL SIGNS: Temperature?98.5, B/P?144/103, Oxygen?Saturation?96% Weight?281?lbs (Change?since?09/21/24:?-2.8?lbs) PAIN: 0 - No pain ECOG Performance Status: 0 - Asymptomatic and fully active GENERAL APPEARANCE: Appears well, in no apparent distress, appropriately interactive. HEENT: Normocephalic, no temporal wasting, normal conjunctiva, no scleral icterus, normal hearing, lips without lesions, neck normal range of motion. CARDIOVASCULAR: Not assessed. PULMONARY: Normal respiratory effort, no respiratory distress or use of accessory muscles, speaking in full sentences, no tachypnea. EXTREMITIES: No pedal edema or cyanosis. SKIN: Normal skin appearance. NEUROLOGIC: Alert and oriented x4. PSHYCHIATRIC: Appropriate affect, mood sad and anxious , behavior normal, intact thought and speech. Breast exam showed redness and indurated skin. LABORATORY DATA: I have personally reviewed and interpreted each of the patient?s relevant lab tests, abnormal findings are below: Date 09/14/24 09/21/24 ??WHITE?BLOOD?COUNT?(Thou/mm3) 4.2 3.6 ??RED?BLOOD?COUNT?(Miln/mm3) 3.30?L 3.29?L ??HEMOGLOBIN?(gm/dl) 10.5?L 10.3?L ??HEMATOCRIT?(%) 30.3?L 29.0?L ??PLATELET?COUNT?(Thou/mm3) 325 319 ??NEUTROPHILS?%,?AUTO?(%) 61 61 ??LYMPH?%,?AUTO?(%) 22 22 ??NEUTROPHILS,?AUTO?(Thou/mm3) 2.6 2.2 ??GLUCOSE,RANDOM?(mg/dL) 120?H 141?H ??BLOOD?UREA?NITROGEN?(mg/dL) 9 10 ??CREATININE?(mg/dL) 0.70 0.60 ??SODIUM?(mmol/L) 140 140 ??POTASSIUM?(mmol/L) 4.0 3.9 ??CHLORIDE?(mmol/L) 108?H 106 ??CrCl?(CandG)?(ml/min) 131.41 154.09 ??AST/SGOT?(Unit/L) 19 20 ??ALT/SGPT?(Unit/L) 20 22 ??ALKALINE?PHOSPHATASE?(Unit/L) 100 90 ??BILIRUBIN,?TOTAL?(mg/dL) 0.4 0.4 ??PROTEIN?TOTAL?(gm/dl) 6.3 6.2 ??ALBUMIN,?SERUM?(gm/dl) 4.0 3.9 ??GLOBULIN?(gm/dl) 2.3 2.3 ??ALBUMIN/GLOBULIN?RATIO 1.7 1.7 ??CALCIUM,?SERUM?(mg/dL) 8.3 8.6 ??CALCIUM?SERUM?(CORRECTED)?(mg/dL) 8.3?L 8.7 ASSESSMENT/PLAN: ER NC positive breast cancer I reviewed echocardiogram shows concentric hypertrophy Patient likely have uncontrolled blood pressure. Assessment and Plan: Feliberto Grady, a female patient with left breast cancer (ER-NC positive, HER2 negative), presenting for follow-up after neoadjuvant chemotherapy and discussion of surgical options. Left Breast Cancer Assessment: Patient has left breast cancer, ER-NC positive, HER2 negative, initially staged as T2N0M0 (stage 2A). Netera testing is now negative, indicating no detectable cancer in the blood. The tumor was initially 3 cm, with 30% involvement. No lymph node involvement. Patient has completed neoadjuvant chemotherapy with Adriamycin, Cyclophosphamide, and is currently receiving Taxol. Echocardiogram is negative. Under the new staging system, the patient is classified as T2, N2, M0, HER2-negative, ER-positive, and NC-positive, which corresponds to stage 1B. Plan: - Continue weekly Taxol chemotherapy, with 8 more treatments remaining (total of 12) - Use cold mittens and socks during Taxol infusions to prevent neuropathy - Schedule left breast mammogram and ultrasound for mid-October - Place referral for tertiary level care surgeon (Dr. Noland or alternative based on insurance coverage) - Schedule breast surgery for 3-4 weeks after completion of chemotherapy (approximately early December) - Plan for port removal during breast surgery - Discuss radiation therapy options with surgeon based on surgical approach - Plan for hormone-blocking therapy for 10 years post-chemotherapy - Follow up in one month to check on surgical referral status - Final chemotherapy session scheduled for November 28 Chemotherapy Side Effects Assessment: Patient reports significant fatigue, limiting daily activities. Experiences numbness and tingling, likely due to Taxol. Reports indigestion, managed with Pepcid. No current issues with nausea or vomiting. Patient had a severe reaction to liquid Benadryl in the past. Plan: - Continue Pepcid for indigestion management - Recommend daily exercise, preferably with a partner, to manage fatigue and anxiety - Suggest gym-based exercise due to air conditioning benefits - Educate on temporary nature of hair loss and expected regrowth - Monitor for neuropathy symptoms Hypertension Assessment: Patient's blood pressure today is 133/94. Elevated blood pressure may be related to stress from cancer diagnosis and treatment. Patient says that her blood pressure is from her anxiety and has stopped taking her losartan Plan: - Continue weekly blood pressure monitoring during chemotherapy sessions - Encourage stress management techniques - Reassess need for antihypertensive medication at follow-up visits Advised her that her echocardiogram did show chronic side effects of hypertension with concentric hypertrophy but she is very persistent and does not want to take her blood pressure medicine ORDERS: Order # Description [id number] Left + 3D Mammogram Diagnostic [id number] Comprehensive Metabolic Panel - 12 + CBC with Auto Diff [id number] MD Follow Up 2 Months RETURN TO CLINIC: BILLING AND COMPLIANCE: I reviewed external records from providers outside my specialty as summarized above. I spent a total of 50 minutes on this patient?s care on the day of their visit excluding time spent related to any billed procedures. This time includes time spent with the patient as well as time spent documenting in the medical record, reviewing patients records and tests, obtaining history, placing orders, communicating with other healthcare professionals, counseling the patient, family or caregiver, and/or care coordination for the diagnoses above. Electronically Signed by: Calderon Serrano MD T: 2:46 PM CC: PCP: Howie Le Referring: Howie Le This document was completed utilizing speech recognition software. Grammatical errors, random word insertions, pronoun errors, and incomplete sentences are an occasional consequence of this system due to software limitations, ambient noise, and hardware issues. Any formal questions or concerns about the content, text or information contained within the body of this dictation should be directly addressed to the provider for clarification.
[2024-09-28 09:08] LABS: Basophils % (Auto) 1 % (0-2.5); Eosinophils # (Auto) 0.1 Thou/mm3 (0.0-0.5); Eosinophils % (Auto) 2 % (0-10); Hematocrit 30.6 % (36.0-46.0); Hemoglobin 10.8 g/dL (12.0-16.0); Immature Granulocytes % (Auto) 3 % (0-0); Immature Granulocytes Auto 0.12 Thou/mm3 (0.00-0.00); Lymphocytes # (Auto) 0.9 Thou/mm3 (1.0-4.8); Lymphocytes % (Auto) 24 % (10-50); Mean Corpuscular HGB Conc 35.3 g/dl (31.0-37.0); Mean Corpuscular Hemoglobin 31.9 pg (25.0-35.0); Mean Corpuscular Volume 90 fL (80-100); Monocytes # (Auto) 0.5 Thou/mm3 (0.0-0.8); Monocytes % (Auto) 14 % (0-12); Neutrophils % (Auto) 56 % (37-80); Nucleated Red Blood Cell % 0 /100 WBC (0); Platelet Count 376 Thou/mm3 (140-440); RDW Standard Deviation 44.3 fL (36.4-46.3); Red Blood Count 3.39 Miln/mm3 (4.00-5.20); White Blood Count 3.6 Thou/mm3 (3.6-11.0)
[2024-09-28 09:29] LABS: Alanine Aminotransferase 22 U/L (10-49); Albumin, Serum 4.1 gm/dL (3.5-5.0); Albumin/Globulin Ratio 1.7 (1.2-2.2); Alkaline Phosphatase 85 U/L (46-116); Anion Gap 8 (7-16); Aspartate Amino Transferase 21 U/L (0-34); BUN/Creatinine Ratio 11 Ratio (12-20); Bilirubin,Total 0.5 mg/dL (0.3-1.2); Blood Urea Nitrogen 8 mg/dL (9-23); Carbon Dioxide 24.7 mMol/L (20.0-31.0); Chloride 108 mMol/L (98-107); Creatinine (Component) 0.7 mg/dL (0.6-1.3); Globulin 2.4 gm/dL (2.3-3.5); Glucose 131 mg/dL (74-106); Osmolality,Calculated 281 (275-295); Potassium 4.1 mMol/L (3.4-5.1); Sodium 141 mMol/L (136-145); Total Protein 6.5 gm/dL (5.7-8.2); eGFR > 60 See Note
[2024-09-28 09:46] LABS: CA 15-3 36.2 U/mL (<32.4)
== END 2024-10-10 23:59 | disposition home or self-care (01) ==
LOC: SCTC 08:33
PROVIDERS: PCP Family Medicine; Referring Provider Family Medicine; Visit Provider Internal Medicine Hematology & Oncology
DX: Z51.11 Encounter for antineoplastic chemotherapy (principal); C50.112 Malignant neoplasm of central portion of left female breast; Z17.0 Estrogen receptor positive status [ER+]; Z17.21 Progesterone receptor positive status; Z17.32 Human epidermal growth factor receptor 2 negative status; I10 Essential (primary) hypertension; K30 Functional dyspepsia; R53.83 Other fatigue
CPT/HCPCS: 80053; 85025; 86300; 96367; 96375; 96413; 99212; A4216; J1100; J1453; J1642; J2405; J3490; J7040; J7050; J9267; A9270; G0463

== ENCOUNTER 2024-10-06 15:47 | Emergency (ER) | payer MEDICAID, SELFPAY ==
[2024-10-06 15:48] VITALS: BMI 43.8
[2024-10-06 15:55] VITALS: BP 142/91; PULSE 100; RESP 18; TEMP 36.9; O2SAT 98
--- NOTE | 2024-10-06 16:10 | PD.EDADULT ---
ED General RME/HPI General Chief complaint: General Adult/Misc Complain Stated complaint: BLOOD IN STOOL Time Seen by Provider: 10/06/24 16:01 Arrival date/time: 10/06/24 15:47 RME / HPI RME / HPI narrative: 48-year-old female presents to the ED with a complaint of bright red blood per rectum that began yesterday. She is a cancer patient and receiving weekly chemo. She usually has constipation but for the past 2 weeks she has not. She denies any recent or current history of hemorrhoids. Denies any recent straining. She denies any coffee-ground type bleeding. She denies any fever or chills, nausea, vomiting, diarrhea or abdominal pain. Related Data Home Medications ?Medication ?Instructions ?Recorded ?Confirmed lisinopril 5 mg tablet 5 mg PO QDAY 06/03/24 06/03/24 Allergies Allergy/AdvReac Type Severity Reaction Status Date / Time No Known Allergies Allergy Verified 06/05/24 09:40 Review of Systems Review of Systems Systems Reviewed: All systems reviewed, normal except as documented Past Medical History Past Medical History NEUROLOGIC: Negative Neurological Disorders or Seizures CARDIAC: Positive Cardiac Disorders and Hypertension; Negative Congestive Heart Failure RESPIRATORY: Negative Chronic Obstructive Pulmonary Disease (COPD) GASTROINTESTINAL: Negative Gastrointestinal Disorders GENITOURINARY: Negative Genitourinary Disorders or Renal Disease REPRODUCTIVE: Positive Breast Cancer (Left) and Previous Pregnancies MUSCULOSKELETAL: Negative Musculoskeletal Disorders ENDOCRINE: Negative Endocrine Disorders, Diabetes Mellitus Type 1 or Diabetes Mellitus Type 2 HEMATOLOGIC: Negative Blood Disorders PSYCHO/SOCIAL: Positive Anxiety OTHER HISTORY: Positive Chicken Pox, Cancer and Breast Cancer (Left); Negative Hospitalization, Autoimmune Disease, Shingles or Blood Transfusions Family History FAMILY HISTORY: Negative Family Psychiatric Problems, Family Respiratory Disorders, Family Cardiac Disorders, Family Gastrointestinal Problems, Family Cancer, Family Surgery or Family Anesthesia Reaction Surgical History SURGICAL: Positive Tonsillectomy and Section Social History SMOKING STATUS: Never smoker ED Exam Narrative Physical exam: Alert and oriented, very pleasant 48-year-old female, no acute distress. Lungs are clear, regular rate and rhythm without murmurs, bowel sounds are present, abdomen is soft and nontender, no rebound or guarding.. No tenderness to percussion. Moves all extremities well. Course Course Course Narrative: 48-year-old female presents to the ED with a complaint of bright red blood per rectum that began yesterday. She is a cancer patient and receiving weekly chemo. She usually has constipation but for the past 2 weeks she has not. She denies any recent or current history of hemorrhoids. Denies any recent straining. She denies any coffee-ground type bleeding. She denies any fever or chills, nausea, vomiting, diarrhea or abdominal pain. Alert and oriented, very pleasant 48-year-old female, no acute distress. Lungs are clear, regular rate and rhythm without murmurs, bowel sounds are present, abdomen is soft and nontender, no rebound or guarding.. No tenderness to percussion. Moves all extremities well. Labs reveal: CT Abd/Pelvis: Quality Measures none Orders Category Date Time Status CT Screening NOW Care 10/06/24 16:[address] Screening X1 Care 10/06/24 16:11 Active IV [Insert IV] NOW Care 10/06/24 16:11 Active NPO STAT Care 10/06/24 16:12 Active Occult Blood,Stool (Nursing) NOW Care 10/06/24 16:[address] abdomen pelvis w con Stat Exams 10/06/24 16:11 Ordered Amylase Stat Lab 10/06/24 16:23 Received CBC Stat Lab 10/06/24 16:23 Received Comprehensive Metabolic Panel Stat Lab 10/06/24 16:23 Received HCG Qualitative,Urine Stat Lab 10/06/24 16:40 Received Lipase Stat Lab 10/06/24 16:23 Received Urinalysis Stat Lab 10/06/24 16:40 Received Vital Signs Vital signs: Vital Signs Temperature 98.5 F 10/06/24 15:55 Pulse Rate 100 10/06/24 15:55 Respiratory Rate 18 10/06/24 15:55 Blood Pressure 142/91 H 10/06/24 15:55 Pulse Oximetry (%) 98 10/06/24 15:55 Oxygen Delivery Method Room Air 10/06/24 15:55 Discharge Plan Prescriptions/Referrals Prescriptions/Med Rec: No Action lisinopril 5 mg Tablet 5 mg PO QDAY Referrals: Howie Le MD [Primary Care Provider] - In 1 week Patient/Caregiver Discharge Instructions Print Language: Malay JAY/AIDE Supervising Physician PA/AIDE Supervising Physician: Dr. Mckeon
[2024-10-06 16:42] VITALS: BP 122/84; PULSE 98; RESP 18; TEMP 37.3; O2SAT 99
[2024-10-06 16:45] LABS: Basophils % (Auto) 0 % (0-2.5); Eosinophils % (Auto) 1 % (0-10); Hematocrit 31.2 % (36.0-46.0); Immature Granulocytes % (Auto) 3 % (0-0); Immature Granulocytes Auto 0.15 Thou/mm3 (0.00-0.00); Lymphocytes # (Auto) 1.4 Thou/mm3 (1.0-4.8); Lymphocytes % (Auto) 28 % (10-50); Mean Corpuscular HGB Conc 35.3 g/dl (31.0-37.0); Mean Corpuscular Hemoglobin 32.2 pg (25.0-35.0); Mean Corpuscular Volume 91 fL (80-100); Monocytes # (Auto) 0.7 Thou/mm3 (0.0-0.8); Monocytes % (Auto) 13 % (0-12); Neutrophils # (Auto) 2.7 Thou/mm3 (1.8-7.7); Neutrophils % (Auto) 54 % (37-80); Nucleated Red Blood Cell # 0.02 Thou/mm3 (0.00-0.00); Nucleated Red Blood Cell % 0 /100 WBC (0); Platelet Count 403 Thou/mm3 (140-440); RDW Standard Deviation 44.6 fL (36.4-46.3); Red Blood Count 3.42 Miln/mm3 (4.00-5.20); White Blood Count 4.9 Thou/mm3 (3.6-11.0)
[2024-10-06 16:53] LABS: Collection Type, Urine Clean Catch
[2024-10-06 17:01] LABS: Bilirubin,Urine Negative (Negative); Blood,Urine Negative (Negative); Clarity,Urine Clear (Clear/Hazy); Color,Urine Yellow (Lt Yel-Yel); Glucose, Urine Negative (Negative); Ketones,Urine Negative (Negative); Leukocyte Esterase,Urine Positive (Negative); Nitrite,Urine Negative (Negative); Protein,Urine Negative (Neg - Trace); RBC,Urine 2 /hpf (0-3); Specific Gravity,Urine 1.021 (1.001-1.035); Squamous Epithelial Cell,Urine 1 /hpf (0-5); WBC,Urine 12 /hpf (0-5)
[2024-10-06 17:04] LABS: Alanine Aminotransferase 19 U/L (10-49); Albumin, Serum 4.2 gm/dL (3.5-5.0); Albumin/Globulin Ratio 1.9 (1.2-2.2); Alkaline Phosphatase 102 U/L (46-116); Amylase 50 U/L (30-118); Anion Gap 8 (7-16); Aspartate Amino Transferase 19 U/L (0-34); BUN/Creatinine Ratio 9 Ratio (12-20); Bilirubin,Total 0.3 mg/dL (0.3-1.2); Blood Urea Nitrogen 7 mg/dL (9-23); Calcium 8.8 mg/dL (8.3-10.6); Calcium (Corrected) 8.8 mg/dL (8.5-10.1); Carbon Dioxide 26.5 mMol/L (20.0-31.0); Chloride 109 mMol/L (98-107); Creatinine (Component) 0.8 mg/dL (0.6-1.3); Estimated Creatinine Clearance 116.6 mL/min (>60); Globulin 2.2 gm/dL (2.3-3.5); Glucose 110 mg/dL (74-106); Lipase 31 U/L (12-53); Osmolality,Calculated 283 (275-295); Potassium 4.2 mMol/L (3.4-5.1); Sodium 143 mMol/L (136-145); Total Protein 6.4 gm/dL (5.7-8.2); eGFR > 60 See Note
[2024-10-06 17:08] LABS: HCG Qualitative,Urine Negative
--- NOTE | 2024-10-06 18:42 | PC.NURSE ---
PT REPORTS TO THIS RN, I'M GOING TO SIGN MYSELF OUT. I CAN'T WAIT ANYMORE. I'M IN CHEMOTHERAPY. I NEED TO REST. RN ASKED IF THERE'S ANYTHING TO BE DONE TO CONVINCE PT TO STAY; PER PT, NO. RN EXPLAINED TO PT RISKS OF LEAVING AMA. PT SIGNED AMA FORM. PT LEFT AMA AT THIS TIME.
== END 2024-10-06 18:42 | disposition left against medical advice (07) ==
LOC: SERX 16:37
PROVIDERS: Physician Assistant; Emergency Provider Emergency Medicine; PCP Family Medicine
DX: K92.1 Melena (principal); Z53.29 Procedure and treatment not carried out because of patient's decision for other reasons
CPT/HCPCS: 36415; 80053; 81001; 81025; 82150; 83690; 85025; 99281

== ENCOUNTER → 2024-11-03 | Outpatient (CLI) | payer MEDICAID, SELFPAY ==
--- NOTE | 2024-11-03 10:30 | XR_ITS ---
Examination: Diagnostic digital mammography, unilateral, left Computer aided detection 3-D breast Tomosynthesis, unilateral Date and time of exam: November 03, 2024 1009 hours INDICATIONS: Mammogram February 24, 2024 28 mm mass retroareolar region left breast Technique: Nonmagnified MLO, CC views of the left breast have been obtained, reconstructed from 3-D Tomosynthesis images. R2 computer aided detection program utilized for evaluation of suspicious masses and/or abnormal calcifications. 3-D Tomosynthesis images obtained. Findings: Scattered areas of fibroglandular density. Mass with irregular margins retroareolar region left breast again noted, now with breast biopsy marker, by history biopsy positive for breast cancer Impression: BI-RADS category 5: Positive for malignancy for breast biopsy report
== END | disposition home or self-care (01) ==
LOC: CDIM 10:01
PROVIDERS: Referring Provider Internal Medicine Hematology & Oncology; Visit Provider Internal Medicine Hematology & Oncology
DX: C50.112 Malignant neoplasm of central portion of left female breast (principal); R92.322 Mammographic fibroglandular density, left breast
CPT/HCPCS: 77061; 77065; G0279

== ENCOUNTER 2024-11-09 09:24 | Outpatient (RCR) | payer MEDICAID, SELFPAY ==
[2024-10-12 09:03] LABS: Basophils % (Auto) 1 % (0-2.5); Eosinophils # (Auto) 0.1 Thou/mm3 (0.0-0.5); Eosinophils % (Auto) 1 % (0-10); Hematocrit 30.4 % (36.0-46.0); Hemoglobin 10.8 g/dL (12.0-16.0); Immature Granulocytes % (Auto) 1 % (0-0); Immature Granulocytes Auto 0.05 Thou/mm3 (0.00-0.00); Lymphocytes # (Auto) 1.2 Thou/mm3 (1.0-4.8); Lymphocytes % (Auto) 24 % (10-50); Mean Corpuscular HGB Conc 35.5 g/dl (31.0-37.0); Mean Corpuscular Hemoglobin 31.4 pg (25.0-35.0); Mean Corpuscular Volume 88 fL (80-100); Monocytes # (Auto) 0.9 Thou/mm3 (0.0-0.8); Monocytes % (Auto) 19 % (0-12); Neutrophils # (Auto) 2.6 Thou/mm3 (1.8-7.7); Neutrophils % (Auto) 54 % (37-80); Nucleated Red Blood Cell % 0 /100 WBC (0); Platelet Count 295 Thou/mm3 (140-440); RDW Standard Deviation 42.8 fL (36.4-46.3); Red Blood Count 3.44 Miln/mm3 (4.00-5.20); White Blood Count 4.8 Thou/mm3 (3.6-11.0)
[2024-10-12 09:27] LABS: Alanine Aminotransferase 18 U/L (10-49); Albumin/Globulin Ratio 2.1 (1.2-2.2); Alkaline Phosphatase 83 U/L (46-116); Anion Gap 9 (7-16); Aspartate Amino Transferase 20 U/L (0-34); BUN/Creatinine Ratio 12 Ratio (12-20); Bilirubin,Total 0.4 mg/dL (0.3-1.2); Blood Urea Nitrogen 7 mg/dL (9-23); Calcium 8.9 mg/dL (8.3-10.6); Calcium (Corrected) 8.9 mg/dL (8.5-10.1); Carbon Dioxide 24.9 mMol/L (20.0-31.0); Chloride 105 mMol/L (98-107); Creatinine (Component) 0.6 mg/dL (0.6-1.3); Globulin 1.9 gm/dL (2.3-3.5); Glucose 119 mg/dL (74-106); Osmolality,Calculated 276 (275-295); Sodium 139 mMol/L (136-145); Total Protein 5.9 gm/dL (5.7-8.2); eGFR > 60 See Note
[2024-11-02 08:17] LABS: Basophils % (Auto) 1 % (0-2.5); Eosinophils # (Auto) 0.2 Thou/mm3 (0.0-0.5); Eosinophils % (Auto) 4 % (0-10); Hematocrit 35.6 % (36.0-46.0); Hemoglobin 12.2 g/dL (12.0-16.0); Immature Granulocytes % (Auto) 1 % (0-0); Immature Granulocytes Auto 0.05 Thou/mm3 (0.00-0.00); Lymphocytes # (Auto) 1.4 Thou/mm3 (1.0-4.8); Lymphocytes % (Auto) 25 % (10-50); Mean Corpuscular HGB Conc 34.3 g/dl (31.0-37.0); Mean Corpuscular Volume 91 fL (80-100); Monocytes # (Auto) 0.8 Thou/mm3 (0.0-0.8); Monocytes % (Auto) 14 % (0-12); Neutrophils # (Auto) 3.2 Thou/mm3 (1.8-7.7); Neutrophils % (Auto) 56 % (37-80); Nucleated Red Blood Cell % 0 /100 WBC (0); Platelet Count 307 Thou/mm3 (140-440); RDW Standard Deviation 41.2 fL (36.4-46.3); Red Blood Count 3.93 Miln/mm3 (4.00-5.20); White Blood Count 5.7 Thou/mm3 (3.6-11.0)
[2024-11-02 08:35] LABS: Alanine Aminotransferase 22 U/L (10-49); Albumin, Serum 4.1 gm/dL (3.5-5.0); Albumin/Globulin Ratio 2.1 (1.2-2.2); Alkaline Phosphatase 88 U/L (46-116); Anion Gap 7 (7-16); Aspartate Amino Transferase 24 U/L (0-34); BUN/Creatinine Ratio 11 Ratio (12-20); Bilirubin,Total 0.4 mg/dL (0.3-1.2); Blood Urea Nitrogen 8 mg/dL (9-23); Calcium 9.6 mg/dL (8.3-10.6); Calcium (Corrected) 9.6 mg/dL (8.5-10.1); Carbon Dioxide 26.2 mMol/L (20.0-31.0); Chloride 105 mMol/L (98-107); Creatinine (Component) 0.7 mg/dL (0.6-1.3); Glucose 129 mg/dL (74-106); Osmolality,Calculated 275 (275-295); Potassium 3.9 mMol/L (3.4-5.1); Sodium 138 mMol/L (136-145); Total Protein 6.1 gm/dL (5.7-8.2); eGFR > 60 See Note
[2024-11-09 10:07] LABS: Basophils % (Auto) 1 % (0-2.5); Eosinophils # (Auto) 0.3 Thou/mm3 (0.0-0.5); Eosinophils % (Auto) 6 % (0-10); Hematocrit 36.3 % (36.0-46.0); Hemoglobin 12.2 g/dL (12.0-16.0); Immature Granulocytes % (Auto) 1 % (0-0); Immature Granulocytes Auto 0.05 Thou/mm3 (0.00-0.00); Lymphocytes # (Auto) 1.2 Thou/mm3 (1.0-4.8); Lymphocytes % (Auto) 23 % (10-50); Mean Corpuscular HGB Conc 33.6 g/dl (31.0-37.0); Mean Corpuscular Hemoglobin 30.1 pg (25.0-35.0); Mean Corpuscular Volume 90 fL (80-100); Monocytes # (Auto) 0.4 Thou/mm3 (0.0-0.8); Monocytes % (Auto) 7 % (0-12); Neutrophils # (Auto) 3.2 Thou/mm3 (1.8-7.7); Neutrophils % (Auto) 63 % (37-80); Nucleated Red Blood Cell % 0 /100 WBC (0); Platelet Count 321 Thou/mm3 (140-440); RDW Standard Deviation 40.5 fL (36.4-46.3); Red Blood Count 4.05 Miln/mm3 (4.00-5.20); White Blood Count 5.1 Thou/mm3 (3.6-11.0)
[2024-11-09 10:25] LABS: Alanine Aminotransferase 24 U/L (10-49); Alkaline Phosphatase 88 U/L (46-116); Anion Gap 7 (7-16); Aspartate Amino Transferase 22 U/L (0-34); BUN/Creatinine Ratio 13 Ratio (12-20); Bilirubin,Total 0.4 mg/dL (0.3-1.2); Blood Urea Nitrogen 9 mg/dL (9-23); Calcium 9.1 mg/dL (8.3-10.6); Calcium (Corrected) 9.1 mg/dL (8.5-10.1); Carbon Dioxide 24.4 mMol/L (20.0-31.0); Chloride 107 mMol/L (98-107); Creatinine (Component) 0.7 mg/dL (0.6-1.3); Glucose 145 mg/dL (74-106); Osmolality,Calculated 277 (275-295); Potassium 3.8 mMol/L (3.4-5.1); Sodium 138 mMol/L (136-145); eGFR > 60 See Note
[2024-11-09 10:44] LABS: CA 15-3 30.7 U/mL (<32.4)
== END 2024-11-09 23:59 | disposition home or self-care (01) ==
LOC: SCTC 09:24
PROVIDERS: PCP Family Medicine; Referring Provider Family Medicine; Visit Provider Internal Medicine Hematology & Oncology
DX: Z51.11 Encounter for antineoplastic chemotherapy (principal); C50.112 Malignant neoplasm of central portion of left female breast; Z17.0 Estrogen receptor positive status [ER+]; Z17.21 Progesterone receptor positive status; Z17.32 Human epidermal growth factor receptor 2 negative status; I10 Essential (primary) hypertension; R53.0 Neoplastic (malignant) related fatigue; R20.0 Anesthesia of skin; R20.2 Paresthesia of skin
CPT/HCPCS: 80053; 84703; 85025; 86300; 96367; 96375; 96413; 99211; A4216; J1100; J1453; J1642; J2405; J3490; J7040; J7050; J9267; A9270; G0463

== ENCOUNTER → 2024-11-29 | Outpatient (CLI) | payer MEDICAID, SELFPAY ==
--- NOTE | 2024-11-29 13:00 | ECHO_ITS ---
Transthoracic Echo Report Ht (in): 68 Wt (lb): 278 Exam Location: Echo Lab Status: [employer] Operator: Violet Mccann Indications: Procedure Performed: BP: / HR: Technical Quality: Technically difficult study MEASUREMENTS (Male / Female) Normal Values 2D ECHO LV Diastolic Diameter PLAX 4.7 cm 4.2 - 5.9 / 3.9 - 5.3 cm LV Systolic Diameter PLAX 3.1 cm IVS Diastolic Thickness 1.0 cm 0.6 - 1.0 / 0.6 - 0.9 cm LVPW Diastolic Thickness 1.1 cm 0.6 - 1.0 / 0.6 - 0.9 cm LV Relative Wall Thickness 0.4 LVOT Diameter 1.9 cm Aortic Root Diameter 2.6 cm LA Volume Index 15.3 cm?/m? 16 - 28 cm?/m? M-MODE Aortic Root Diameter MM 2.7 cm LA Systolic Diameter MM 3.6 cm LA Ao Ratio MM 1.3 AV Cusp Separation MM 1.5 cm DOPPLER AV Peak Velocity 115.0 cm/s AV Peak Gradient 5.3 mmHg AV Mean Gradient 2.0 mmHg AV Velocity Time Integral 18.9 cm LVOT Peak Velocity 93.1 cm/s LVOT Peak Gradient 3.5 mmHg LVOT Velocity Time Integral 16.5 cm AV Area Cont Eq vti 2.5 cm? AV Area Cont Eq pk 2.3 cm? MV Area PHT 6.3 cm? Mitral E Point Velocity 45.6 cm/s Mitral A Point Velocity 57.7 cm/s Mitral E to A Ratio 0.8 PV Peak Velocity 81.4 cm/s PV Peak Gradient 2.7 mmHg FINDINGS Left Ventricle Normal left ventricular size, wall thickness, systolic function with no obvious regional wall motion abnormalities. The ejection fraction is visually estimated at 60-65 %. There is grade I diastolic dysfunction of the left ventricle Right Ventricle The right ventricle is normal in size and systolic function. Left Atrium The left atrium is normal by two-dimensional, color flow and Doppler imaging with no structural abnormalities, no thrombus formation present. Right Atrium The right atrium is normal by two-dimensional imaging, color flow and Doppler imaging with no structural abnormalities, no thrombus formation present. Atrial Septum The interatrial septum appears normal with no evidence of a shunt. Aorta The aorta is normal by two-dimensional, color flow and Doppler interrogation. Mitral Valve The mitral valve is normal by two-dimensional, color flow and Doppler interrogation. Trace mitral regurgitation. Aortic Valve The aortic valve is trileaflet and normal by two-dimensional, color flow and Doppler interrogation. There is no significant aortic valve regurgitation. Tricuspid Valve The tricuspid valve is normal by two-dimensional, color flow and Doppler interrogation. There is trace tricuspid valve regurgitation. Pulmonic Valve The pulmonic valve is not well visualized. There is no significant pulmonic valve regurgitation. Vessels The pulmonary artery appears normal. The inferior vena cava pulmonary and hepatic veins appear normal. Pericardium The pericardium is normal by two-dimensional imaging. There is no significant pericardial effusion. CONCLUSIONS Indication: Malignant neoplasm of central portion of left female breast Normal LV size, wall thickness. Estimated EF at 65 %. The RV is normal in size and systolic function. Trace mitral and trace tricuspid regurgitation Latha Palafox (Electronically Signed) Final Date: 29 November 2024 16:33
== END | disposition home or self-care (01) ==
LOC: SDIM 12:28
PROVIDERS: PCP Internal Medicine; Referring Provider Internal Medicine Hematology & Oncology; Visit Provider Internal Medicine Hematology & Oncology
DX: I08.1 Rheumatic disorders of both mitral and tricuspid valves (principal); C50.112 Malignant neoplasm of central portion of left female breast
CPT/HCPCS: 93306

== ENCOUNTER 2024-12-07 07:46 | Outpatient (RCR) | payer MEDICAID, SELFPAY ==
[2024-11-16 09:07] LABS: Basophils # (Auto) 0.0 Thou/mm3 (0.0-0.2); Basophils % (Auto) 1 % (0-2.5); Eosinophils # (Auto) 0.1 Thou/mm3 (0.0-0.5); Eosinophils % (Auto) 2 % (0-10); Hematocrit 35.1 % (36.0-46.0); Hemoglobin 11.8 g/dL (12.0-16.0); Immature Granulocytes Auto 0.03 Thou/mm3 (0.00-0.00); Lymphocytes # (Auto) 1.0 Thou/mm3 (1.0-4.8); Lymphocytes % (Auto) 25 % (10-50); Mean Corpuscular HGB Conc 33.6 g/dl (31.0-37.0); Mean Corpuscular Hemoglobin 30.6 pg (25.0-35.0); Mean Corpuscular Volume 91 fL (80-100); Monocytes # (Auto) 0.4 Thou/mm3 (0.0-0.8); Monocytes % (Auto) 9 % (0-12); Neutrophils # (Auto) 2.7 Thou/mm3 (1.8-7.7); Neutrophils % (Auto) 63 % (37-80); Nucleated Red Blood Cell # 0.00 Thou/mm3 (0.00-0.00); Nucleated Red Blood Cell % 0 /100 WBC (0); Platelet Count 323 Thou/mm3 (140-440); RDW Standard Deviation 41.4 fL (36.4-46.3); Red Blood Count 3.86 Miln/mm3 (4.00-5.20); White Blood Count 4.2 Thou/mm3 (3.6-11.0)
[2024-11-16 09:23] LABS: Alanine Aminotransferase 20 U/L (10-49); Albumin, Serum 4.0 gm/dL (3.5-5.0); Albumin/Globulin Ratio 1.7 (1.2-2.2); Alkaline Phosphatase 104 U/L (46-116); Anion Gap 8 (7-16); Aspartate Amino Transferase 15 U/L (0-34); BUN/Creatinine Ratio 17 Ratio (12-20); Bilirubin,Total 0.4 mg/dL (0.3-1.2); Blood Urea Nitrogen 10 mg/dL (9-23); Calcium 9.0 mg/dL (8.3-10.6); Calcium (Corrected) 9.0 mg/dL (8.5-10.1); Carbon Dioxide 25.2 mMol/L (20.0-31.0); Chloride 110 mMol/L (98-107); Creatinine (Component) 0.6 mg/dL (0.6-1.3); Globulin 2.3 gm/dL (2.3-3.5); Glucose 153 mg/dL (74-106); Osmolality,Calculated 286 (275-295); Potassium 4.0 mMol/L (3.4-5.1); Sodium 143 mMol/L (136-145); Total Protein 6.3 gm/dL (5.7-8.2); eGFR > 60 See Note
[2024-11-16 09:41] LABS: CA 15-3 24.8 U/mL (<32.4)
[2024-11-23 08:52] LABS: Basophils # (Auto) 0.0 Thou/mm3 (0.0-0.2); Basophils % (Auto) 1 % (0-2.5); Eosinophils # (Auto) 0.1 Thou/mm3 (0.0-0.5); Eosinophils % (Auto) 1 % (0-10); Hematocrit 33.2 % (36.0-46.0); Hemoglobin 11.2 g/dL (12.0-16.0); Immature Granulocytes Auto 0.04 Thou/mm3 (0.00-0.00); Lymphocytes # (Auto) 1.1 Thou/mm3 (1.0-4.8); Lymphocytes % (Auto) 27 % (10-50); Mean Corpuscular HGB Conc 33.7 g/dl (31.0-37.0); Mean Corpuscular Hemoglobin 30.0 pg (25.0-35.0); Mean Corpuscular Volume 89 fL (80-100); Monocytes # (Auto) 0.5 Thou/mm3 (0.0-0.8); Monocytes % (Auto) 12 % (0-12); Neutrophils # (Auto) 2.4 Thou/mm3 (1.8-7.7); Neutrophils % (Auto) 58 % (37-80); Nucleated Red Blood Cell # 0.00 Thou/mm3 (0.00-0.00); Nucleated Red Blood Cell % 0 /100 WBC (0); Platelet Count 331 Thou/mm3 (140-440); RDW Standard Deviation 40.6 fL (36.4-46.3); Red Blood Count 3.73 Miln/mm3 (4.00-5.20); White Blood Count 4.0 Thou/mm3 (3.6-11.0)
[2024-11-23 09:02] LABS: Alanine Aminotransferase 15 U/L (10-49); Albumin, Serum 3.9 gm/dL (3.5-5.0); Albumin/Globulin Ratio 1.7 (1.2-2.2); Alkaline Phosphatase 87 U/L (46-116); Anion Gap 11 (7-16); Aspartate Amino Transferase 14 U/L (0-34); BUN/Creatinine Ratio 11 Ratio (12-20); Bilirubin,Total 0.5 mg/dL (0.3-1.2); Blood Urea Nitrogen 8 mg/dL (9-23); Calcium 8.9 mg/dL (8.3-10.6); Calcium (Corrected) 9.0 mg/dL (8.5-10.1); Carbon Dioxide 24.1 mMol/L (20.0-31.0); Chloride 107 mMol/L (98-107); Creatinine (Component) 0.7 mg/dL (0.6-1.3); Globulin 2.3 gm/dL (2.3-3.5); Glucose 117 mg/dL (74-106); Osmolality,Calculated 282 (275-295); Potassium 4.0 mMol/L (3.4-5.1); Sodium 142 mMol/L (136-145); Total Protein 6.2 gm/dL (5.7-8.2); eGFR > 60 See Note
[2024-11-23 09:19] LABS: CA 15-3 21.7 U/mL (<32.4)
[2024-11-30 08:39] LABS: Basophils # (Auto) 0.0 Thou/mm3 (0.0-0.2); Basophils % (Auto) 0 % (0-2.5); Eosinophils # (Auto) 0.0 Thou/mm3 (0.0-0.5); Eosinophils % (Auto) 1 % (0-10); Hematocrit 32.6 % (36.0-46.0); Hemoglobin 11.2 g/dL (12.0-16.0); Immature Granulocytes Auto 0.07 Thou/mm3 (0.00-0.00); Lymphocytes # (Auto) 1.1 Thou/mm3 (1.0-4.8); Lymphocytes % (Auto) 32 % (10-50); Mean Corpuscular HGB Conc 34.4 g/dl (31.0-37.0); Mean Corpuscular Hemoglobin 29.9 pg (25.0-35.0); Mean Corpuscular Volume 87 fL (80-100); Monocytes # (Auto) 0.4 Thou/mm3 (0.0-0.8); Monocytes % (Auto) 12 % (0-12); Neutrophils # (Auto) 1.8 Thou/mm3 (1.8-7.7); Neutrophils % (Auto) 53 % (37-80); Nucleated Red Blood Cell # 0.00 Thou/mm3 (0.00-0.00); Nucleated Red Blood Cell % 0 /100 WBC (0); Platelet Count 331 Thou/mm3 (140-440); RDW Standard Deviation 41.0 fL (36.4-46.3); Red Blood Count 3.75 Miln/mm3 (4.00-5.20); White Blood Count 3.5 Thou/mm3 (3.6-11.0)
[2024-11-30 08:59] LABS: Alanine Aminotransferase 23 U/L (10-49); Albumin, Serum 4.0 gm/dL (3.5-5.0); Albumin/Globulin Ratio 2.2 (1.2-2.2); Alkaline Phosphatase 92 U/L (46-116); Anion Gap 8 (7-16); Aspartate Amino Transferase 16 U/L (0-34); BUN/Creatinine Ratio 17 Ratio (12-20); Bilirubin,Total 0.3 mg/dL (0.3-1.2); Blood Urea Nitrogen 10 mg/dL (9-23); Calcium 9.2 mg/dL (8.3-10.6); Calcium (Corrected) 9.2 mg/dL (8.5-10.1); Carbon Dioxide 24.6 mMol/L (20.0-31.0); Chloride 109 mMol/L (98-107); Creatinine (Component) 0.6 mg/dL (0.6-1.3); Globulin 1.8 gm/dL (2.3-3.5); Glucose 114 mg/dL (74-106); Osmolality,Calculated 283 (275-295); Potassium 3.9 mMol/L (3.4-5.1); Sodium 142 mMol/L (136-145); Total Protein 5.8 gm/dL (5.7-8.2); eGFR > 60 See Note
[2024-12-07 08:34] LABS: Basophils # (Auto) 0.0 Thou/mm3 (0.0-0.2); Basophils % (Auto) 1 % (0-2.5); Eosinophils # (Auto) 0.0 Thou/mm3 (0.0-0.5); Eosinophils % (Auto) 1 % (0-10); Hematocrit 34.1 % (36.0-46.0); Hemoglobin 11.3 g/dL (12.0-16.0); Immature Granulocytes Auto 0.09 Thou/mm3 (0.00-0.00); Lymphocytes # (Auto) 1.0 Thou/mm3 (1.0-4.8); Lymphocytes % (Auto) 28 % (10-50); Mean Corpuscular HGB Conc 33.1 g/dl (31.0-37.0); Mean Corpuscular Hemoglobin 29.7 pg (25.0-35.0); Mean Corpuscular Volume 90 fL (80-100); Monocytes # (Auto) 0.5 Thou/mm3 (0.0-0.8); Monocytes % (Auto) 13 % (0-12); Neutrophils # (Auto) 2.0 Thou/mm3 (1.8-7.7); Neutrophils % (Auto) 55 % (37-80); Nucleated Red Blood Cell # 0.00 Thou/mm3 (0.00-0.00); Nucleated Red Blood Cell % 0 /100 WBC (0); Platelet Count 299 Thou/mm3 (140-440); RDW Standard Deviation 42.3 fL (36.4-46.3); Red Blood Count 3.80 Miln/mm3 (4.00-5.20); White Blood Count 3.6 Thou/mm3 (3.6-11.0)
[2024-12-07 09:04] LABS: Alanine Aminotransferase 27 U/L (10-49); Albumin, Serum 3.8 gm/dL (3.5-5.0); Albumin/Globulin Ratio 1.8 (1.2-2.2); Alkaline Phosphatase 93 U/L (46-116); Anion Gap 7 (7-16); Aspartate Amino Transferase 20 U/L (0-34); BUN/Creatinine Ratio 13 Ratio (12-20); Bilirubin,Total 0.3 mg/dL (0.3-1.2); Blood Urea Nitrogen 9 mg/dL (9-23); Calcium 8.7 mg/dL (8.3-10.6); Calcium (Corrected) 8.9 mg/dL (8.5-10.1); Carbon Dioxide 25.1 mMol/L (20.0-31.0); Chloride 110 mMol/L (98-107); Creatinine (Component) 0.7 mg/dL (0.6-1.3); Globulin 2.1 gm/dL (2.3-3.5); Glucose 107 mg/dL (74-106); Osmolality,Calculated 281 (275-295); Potassium 4.0 mMol/L (3.4-5.1); Sodium 142 mMol/L (136-145); Total Protein 5.9 gm/dL (5.7-8.2); eGFR > 60 See Note
[2024-12-07 09:21] LABS: CA 15-3 30.5 U/mL (<32.4)
== END 2024-12-10 23:59 | disposition home or self-care (01) ==
LOC: SCTC 07:46
PROVIDERS: PCP Student in an Organized Health Care Education/Training Program; Referring Provider Student in an Organized Health Care Education/Training Program; Visit Provider Internal Medicine Hematology & Oncology
DX: Z51.11 Encounter for antineoplastic chemotherapy (principal); C50.112 Malignant neoplasm of central portion of left female breast; Z17.0 Estrogen receptor positive status [ER+]; Z17.21 Progesterone receptor positive status; Z17.32 Human epidermal growth factor receptor 2 negative status; R53.0 Neoplastic (malignant) related fatigue; R20.0 Anesthesia of skin; R20.2 Paresthesia of skin; K30 Functional dyspepsia; I10 Essential (primary) hypertension
CPT/HCPCS: 80053; 85025; 86300; 96367; 96375; 96413; A4216; J1100; J1453; J1642; J2405; J3490; J7040; J7050; J9267; A9270

== ENCOUNTER 2024-12-14 13:09 | Outpatient (RCR) | payer MEDICAID, SELFPAY ==
--- NOTE | 2024-12-14 14:45 | CTCFLWUP_ITS ---
Patient: SUBHASH OSEGUERA : 1975 Page 2 of 2 FOLLOW UP NOTE DATE OF SERVICE: 12/14/2024 NAME: SUBHASH OSEGUERA ACCOUNT: [id number] : 1975 AGE: 49 INTERVAL HISTORY: Subjective: Chief Complaint Follow-up on left breast cancer History of Present Illness Patient has completed chemotherapy. Patient is complaining of residual peripheral neuropathy. Patient is yet to follow-up with the surgeon. I spoke to Dr. Smyth and placed consult for surgery again with him. Patient advised to follow-up with him ELVIA Patient is also complaining of mild rash on both arms especially on exposed areas to sun. Associated with severe itching. Patient says her neuropathy is affecting her. Medications and Supplements - Pepcid - Taken for indigestion - Taxol - Causes numbness and tingling - Uses hand-cold mittens to manage side effects - Benadryl - Helps with side effects of chemotherapy - Liquid form caused a severe reaction - Adriamycin - Past chemotherapy medication - Cyclophosphamide - Past chemotherapy medication - Caused nausea and vomiting Review of Systems General: Positive for fatigue, lack of energy. Gastrointestinal: Positive for indigestion. Neurological: Positive for numbness and tingling. Psychiatric: Positive for anxiety. Objective: Vital Signs - Blood Pressure: 133/94 mmHg Laboratory, Imaging, and Diagnostic Test Results - Netera test: Negative (no cancer detected in blood) - Echocardiogram: Negative ONCOLOGY HISTORY: DIAGNOSIS: Malignant neoplasm of central portion of left female breast [ICD10] C50.112 DATE OF DIAGNOSIS: 02/24/2024 left breast with invasive ductal carcinoma ER/VA positive STAGE/TNM: Stage SpL0PWLE ER/VA positive HER2 2+ negative TREATMENT HISTORY: Care?Plan Start?Date Cycle Day Intent AC?4?cy?DD?Taxol?wkly?12?wks 05/27/2024 2 7 Primary-Neoadjuvant HISTORY OF PRESENT ILLNESS: 49-year-old female with diagnosis of breast cancer . patient self palpated mass and found with cancer. Patient s grandmother of breast cancer. Patient is single parent.patient is worried. 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 gabapentin - 300 mg 1 Capsule every 8 hrs as needed 2. hydrocortisone - 0.5 % 5 mg Daily 3. Lidocaine Viscous - 2 % 5 mL Daily 4. Maalox Maximum Strength - 400-400-40 mg/5 mL 5 mL Daily 5. melatonin - 3 mg Every day before sleep 6. nystatin - 100,000 unit/mL 5 mL Daily 7. ondansetron - 8 mg 1 tab Daily 8. Pepcid - 20 mg 1 tab Daily 9. Protonix - 40 mg 1 tab Daily Medications Last Reconciled by Miryam Lowry MD on 12/14/2024 ALLERGIES: No Known Allergies REVIEW OF SYSTEMS: A complete 14-point review of systems was performed and is negative except as noted in interval history. PHYSICAL EXAMINATION: VITAL SIGNS: Temperature?97.2, B/P?137/97, Oxygen?Saturation?98% Weight?288?lbs (Change?since?12/07/24:?-0.8?lbs) PAIN: 0 - No pain ECOG Performance Status: 1 - Symptomatic; ambulatory; restricted in strenuous activity GENERAL APPEARANCE: Appears well, in no apparent distress, appropriately interactive. HEENT: Normocephalic, no temporal wasting, normal conjunctiva, no scleral icterus, normal hearing, lips without lesions, neck normal range of motion. CARDIOVASCULAR: Not assessed. PULMONARY: Normal respiratory effort, no respiratory distress or use of accessory muscles, speaking in full sentences, no tachypnea. EXTREMITIES: No pedal edema or cyanosis. SKIN: Normal skin appearance. NEUROLOGIC: Alert and oriented x4. Both palms and soles at least grade 1 neuropathy PSHYCHIATRIC: Appropriate affect, mood sad and anxious , behavior normal, intact thought and speech. Breast exam showed normal skin LABORATORY DATA: I have personally reviewed and interpreted each of the patient?s relevant lab tests, abnormal findings are below: Date 11/30/24 12/07/24 ??WHITE?BLOOD?COUNT?(Thou/mm3) 3.5?L 3.6 ??RED?BLOOD?COUNT?(Miln/mm3) 3.75?L 3.80?L ??HEMOGLOBIN?(gm/dl) 11.2?L 11.3?L ??HEMATOCRIT?(%) 32.6?L 34.1?L ??PLATELET?COUNT?(Thou/mm3) 331 299 ??NEUTROPHILS?%,?AUTO?(%) 53 55 ??LYMPH?%,?AUTO?(%) 32 28 ??NEUTROPHILS,?AUTO?(Thou/mm3) 1.8 2.0 ??GLUCOSE,RANDOM?(mg/dL) 114?H 107?H ??BLOOD?UREA?NITROGEN?(mg/dL) 10 9 ??CREATININE?(mg/dL) 0.60 0.70 ??SODIUM?(mmol/L) 142 142 ??POTASSIUM?(mmol/L) 3.9 4.0 ??CHLORIDE?(mmol/L) 109?H 110?H ??CrCl?(CandG)?(ml/min) 155.63 133.45 ??AST/SGOT?(Unit/L) 16 20 ??ALT/SGPT?(Unit/L) 23 27 ??ALKALINE?PHOSPHATASE?(Unit/L) 92 93 ??BILIRUBIN,?TOTAL?(mg/dL) 0.3 0.3 ??PROTEIN?TOTAL?(gm/dl) 5.8 5.9 ??ALBUMIN,?SERUM?(gm/dl) 4.0 3.8 ??GLOBULIN?(gm/dl) 1.8?L 2.1?L ??ALBUMIN/GLOBULIN?RATIO 2.2 1.8 ??CALCIUM,?SERUM?(mg/dL) 9.2 8.7 ??CALCIUM?SERUM?(CORRECTED)?(mg/dL) 9.2 8.9 ASSESSMENT/PLAN: ER VA positive breast cancer Patient had at least stage Ib breast cancer There was involvement of lymphatics as well as nipple inversion at presentation Patient since chemotherapy have almost recovery of her breast skin and is almost normal No palpable mass Patient has left breast cancer, ER-VA positive, HER2 negative, initially staged as T2N0M0 (stage 2A). Netera testing is now negative, indicating no detectable cancer in the blood. The tumor was initially 3 cm, with 30% involvement. No lymph node involvement. Patient has completed neoadjuvant chemotherapy with Adriamycin, Cyclophosphamide, and Taxol. Echocardiogram is negative. Under the new staging system, the patient is classified as T2, N2, M0, HER2-negative, ER- positive, and VA-positive, which corresponds to stage 1B. - Placed referral for tertiary level care surgeon (Dr. Noland or alternative based on insurance coverage) - Schedule breast surgery for 3-4 weeks after completion of chemotherapy (approximately early December) - Plan for port removal during breast surgery - Discussed radiation therapy options with surgeon based on surgical approach - Plan for hormone-blocking therapy for 10 years post-chemotherapy - Follow up in one month to check on surgical referral status Chemotherapy Side Effects Will start on gabapentin for peripheral neuropathy Hydrocortisone cream for eczema-like rash Advised to use sunscreen Follow-up with the primary care for chronic conditions including hypertension and obesity ORDERS: Order # Description [id number] Comprehensive Metabolic Panel - 12 + CBC with Auto Diff [id number] RETURN TO CLINIC: I reviewed the diagnosis, prognosis, and recommended treatment/procedure options with the patient (and/or their legal corporate representative), including the potential benefits, risks, side effects and alternative therapies. We also discussed the option of no treatment and the possibility of clinical trial participation, if applicable. All questions were addressed, and they demonstrated understanding. They provided informed consent to proceed with the proposed plan of care. BILLING AND COMPLIANCE: I reviewed external records from providers outside my specialty as summarized above. I spent a total of 50 minutes on this patient?s care on the day of their visit excluding time spent related to any billed procedures. This time includes time spent with the patient as well as time spent documenting in the medical record, reviewing patients records and tests, obtaining history, placing orders, communicating with other healthcare professionals, counseling the patient, family or caregiver, and/or care coordination for the diagnoses above. Electronically Signed by: Calderon Serrano MD T: 2:42 PM CC: PCP: Liborio Paul Referring: Liborio Paul This document was completed utilizing speech recognition software. Grammatical errors, random word insertions, pronoun errors, and incomplete sentences are an occasional consequence of this system due to software limitations, ambient noise, and hardware issues. Any formal questions or concerns about the content, text or information contained within the body of this dictation should be directly addressed to the provider for clarification.
== END 2025-01-10 23:59 | disposition home or self-care (01) ==
LOC: SCTC 13:09
PROVIDERS: PCP Student in an Organized Health Care Education/Training Program; Referring Provider Student in an Organized Health Care Education/Training Program; Visit Provider Internal Medicine Hematology & Oncology
DX: C50.112 Malignant neoplasm of central portion of left female breast (principal); Z17.0 Estrogen receptor positive status [ER+]; Z17.21 Progesterone receptor positive status; Z17.32 Human epidermal growth factor receptor 2 negative status; G62.9 Polyneuropathy, unspecified; Z92.21 Personal history of antineoplastic chemotherapy; I10 Essential (primary) hypertension; E66.9 Obesity, unspecified
CPT/HCPCS: 99212; G0463

== ENCOUNTER → 2025-01-12 | Outpatient (CLI) | payer MEDICAID, SELFPAY ==
--- NOTE | 2025-01-12 12:00 | XR_ITS ---
Examination: Bilateral breast MRI without intravenous contrast Bilateral breast MRI with intravenous contrast Date and time: January 12, 2025 1228 hours INDICATIONS: Diagnosis malignant neoplasm central portion left female breast, mammogram 07/06/2024 mass with irregular margins retroareolar region left breast biopsy positive lesion technique and findings: Bilateral breast MRI images pre and post 20 cc gadolinium Scattered areas of fibroglandular density with minimal background breast enhancement 30 x 28 x 30 mm mass spiculated margins 3:00 retroareolar region left breast This lesion on and headache analysis postcontrast shows rapid wash-in and rapid washout No chest wall lesion No pathologic lymphadenopathy No right breast lesion noted IMPRESSION: BI-RADS Category 5, biopsy positive for carcinoma of lesion 30 x 28 x 30 mm retroareolar region 3:00 position left breast No pathologic lymphadenopathy
== END | disposition home or self-care (01) ==
LOC: SMRI 11:21
PROVIDERS: Referring Provider Surgery; Visit Provider Surgery
DX: N64.89 Other specified disorders of breast (principal); C50.112 Malignant neoplasm of central portion of left female breast
CPT/HCPCS: 77049; A9577; C8908

== ENCOUNTER 2025-02-24 09:48 | Outpatient (RCR) | payer MEDICAID, SELFPAY ==
--- NOTE | 2025-02-24 10:24 | CTCFLWUP_ITS ---
[facility] [address] [place], [place] [address] FOLLOW-UP NOTE Date: 02/24/2025 MR#: [id number] Name: SUBHASH OSEGUERA : 1975 Dx: C50.112 Malignant neoplasm of central portion of left female breast Identification. Patient had neoadjuvant chemotherapy for followed by surgery performed [address] Noland. Final path is not immediately available to us. Patient will be seeing Dr. Noland later today. I will go over the final path results and discussion with Dr. Noland to see if any adjuvant radiation therapy will be necessary. Electronically signed by: Chau Hickey M.D. 02/24/2025 10:22 AM
--- NOTE | 2025-02-24 11:32 | CTCTXPLN_ITS ---
[facility] [address] [place], [place] [address] Physician Clinical Treatment Planning Note Date of Service: 02/24/2025 Name: SUBHASH OUMAR Gutiérrez.: 1975 The patient has agreed to proceed with Radiation therapy. Tests and supporting medical records were interpreted to assist in defining the tumor location and extent of disease. Further imaging will be necessary to contour and delineate the volume to which the XRT will be provided. A. Treatment Intent: Curative B. Modality: Left breast C. Requested Technique: 3D D. Treatment Site: Left breast E. Critical structures to be contoured on plan: F. In order to accomplish this plan, I am ordering/Prescribing the followin. Simulations (s) will be performed to accomplish a reproducible treatment position, to determine optimal treatment portals/beam arrangements, to design beam modifying devices and verify treatment portals on patient prior to the commencement of Radiation Therapy. Left breast 2. Devices; for immobilization and beam shaping: Vac-Lisa 3. CT Guidance for placement of XRT keen Scan area: 4. Portal images Frequency: 5. Invivo transit dose measurement once per week on all VMAT patients. 6. Special Physics Consult Requested for: 7. Other requests: Chemoradiation G. Dose Objectives: Curative Electronically signed by: Chau Hickey M.D. 02/24/2025 11:30 AM
--- NOTE | 2025-02-24 11:32 | CTCTXPLNST_ITS ---
Radiation Oncology Treatment Planning Sheet Name: SUBHASH OSEGUERA MR#: [id number] : 1975 Dx: C50.112 Malignant neoplasm of central portion of left female breast Date of Service: 02/24/2025 Account #: ?? Pt Treatment Intent: curative palliative other: Stage: Procedure CPT # Ordered Spec. Procedure 37748 1 Feliz Complex (set-up) 64462 L Forde/ E boost 2 Feliz Simple 98647 1 IMRT Plan 94988 MLC Devices VMAT 58809 Feliz 3 D 02167 1 TRTMT dev Complex 94653 Vaklok/ 2tang/SC/PAB/E boost 6 TRTMT dev simple 39845 3 mm bolus 1 Basic Jaspal 65803 7 Special Dosimetry 13696 Spec Physics 51918 Port Films 26245 5 SRS Cranial/1FX 08329 SBR 5 FX or Less /ex: 5 = 5 fx 47060 IMRT Simple 24098 IMRT Complex 81353 IGRT 62632 Rad del Corgenix 6- 35687 Rad del Corgenix 03-31 96127 6300 35 Cont Med Physics 60201 7 Treatment Planning 57718 1 Weekly Evaluation 71675 7 Rad del Corgenix 20 mev 06414 Special Port Plan 46434 TRTMT dev inter 50736 Isodose Complex 52243 Isodose simple 89273 Resp Motion Mgmt Simulation 76190 Placement of Fiducial Markers 82292 Electronically Signed By: Chau Hickey MD, GALR 02/24/2025 11:29 AM
--- NOTE | 2025-02-25 14:57 | CTCFLWUP_ITS ---
[facility] [address] [place], [place] [address] FOLLOW-UP NOTE Date: 02/24/2025 MR#: [id number] Name: SUBHASH OSEGUERA : 1975 Dx: C50.112 Malignant neoplasm of central portion of left female breast Addendum. Had access to the pathology report of recent mastectomy performed by Dr. Noland. Final path revealed y [id number] consider residual cancer with tumor greatest dimension 35 x 30 x 30 mm with single focus of invasive carcinoma and 4 lymph nodes with macro mets Additional surgery is being planned, and postop radiation therapy recommended. Electronically signed by: Chau Hickey M.D. 02/25/2025 2:54 PM
== END 2025-03-12 23:59 | disposition home or self-care (01) ==
LOC: SCTC 09:48
PROVIDERS: Referring Provider Radiology Therapeutic Radiology; Visit Provider Radiology Therapeutic Radiology
DX: C50.112 Malignant neoplasm of central portion of left female breast (principal); Z17.0 Estrogen receptor positive status [ER+]; Z17.21 Progesterone receptor positive status; Z17.32 Human epidermal growth factor receptor 2 negative status
CPT/HCPCS: 77470; 99213; G0463

== ENCOUNTER → 2025-04-20 | Outpatient (CLI) | payer MEDICAID, SELFPAY ==
--- NOTE | 2025-04-20 10:30 | ECHO_ITS ---
Patient Info Name: Sangeeta Dao Age: 49 years : 1975 Gender: Female Ht: 170 cm Wt: 133 kg BSA: 2.58 m2 BP: 129 / 95 mmHg HR: 74 bpm Exam Date: 04/20/2025 10:46 AM Admit Date: 04/20/2025 Site: [facility] Room Number: OP Patient Status: O Technical Quality: Poor Exam Type: CA echo doppler complete Reason for Poor Study: poor echocardiographic windows, body habitus Mowing Machine Operator: Abigail Keller Ordering Physician: Calderon Serrano Referring Physician: Calderon Serrano Study Info Indications SCREENING - Primary Location: SDIM Left Ventricular Outflow Tract Name Value Normal LVOT 2D LVOT Diameter 2.3 cm LVOT Doppler LVOT Peak Velocity 92 cm/s LVOT Mean Gradient 2 mmHg LVOT VTI 21 cm LVOT VTI/AV VTI Ratio 0.6 LVOT Stroke Volume 86 ml Pulmonic Valve Name Value Normal PV Doppler PV Peak Velocity 88 cm/s Mitral Valve Name Value Normal MV Doppler MV [place]el [place] 296 cm/s2 MV PHT 47 ms MV Area (PHT) 4.7 cm2 4.0-5.0 MV Diastolic Function MV E Peak Velocity 48 cm/s MV A Peak Velocity 48 cm/s MV E/A 1.0 MV Annular TDI MV Septal e' Velocity 5.2 cm/s MV E/e' (Septal) 9.2 MV Lateral e' Velocity 6.9 cm/s MV E/e' (Lateral) 7.0 MV e' Average 6.04 cm/s MV E/e' (Average) 8.1 Tricuspid Valve Name Value Normal Estimated PAP/RSVP RA Pressure 8 mmHg <=5 PA Systolic Pressure 20 mmHg <36 TV Annular TDI TV Lateral Emelina s' Velocity 10.9 cm/s >=9.5 Aortic Valve Name Value Normal AV Doppler AV Peak Velocity 140 cm/s AV Mean Gradient 5 mmHg AV VTI 34 cm AV Area (Cont Eq VTI) 2.5 cm2 >=3.0 AV Area (Cont Eq Luis Alfredo) 2.7 cm2 AV DI (Luis Alfredo) 0.66 AV Regurgitation 2D LVOT Area 4.2 cm2 Ventricles Name Value Normal LV Dimensions 2D/MM IVS Diastolic Thickness (2D) 1.0 cm 0.6-0.9 LVID Diastole (2D) 5.2 cm 3.8-5.2 LVIW Diastolic Thickness (2D) 1.1 cm 0.6-0.9 LVID Systole (2D) 3.5 cm 2.2-3.5 LVOT Diameter 2.3 cm LV Mass (2D Cubed) 207.28 g 67.00-162.00 LV Mass Index (2D Cubed) 80 g/m2 43-95 Relative Wall Thickness (2D) 0.42 <=0.42 IVS/LVIW Diastolic Thickness (2D) 0.91 0.00-1.50 LV Fractional Shortening/Ejection Fraction 2D/MM LV Fractional Shortening (2D) 33 % 27-45 LV EF (2D Teichholz) 61 % RV Dimensions 2D/MM TV Lateral Emelina s' Velocity 10.9 cm/s >=9.5 Atria Name Value Normal LA Dimensions LA Volume (4C A-L) 32 ml LA Volume (BP A-L) 35 ml Left Ventricle Left ventricular chamber dimension is normal. Left ventricular systolic function is normal with visually estimated ejection fraction of 55-60%. There is mild concentric hypertrophy noted in the left ventricle. Left ventricular segmental wall motion is normal. There is grade I diastolic dysfunction in the left ventricle. Right Ventricle Right ventricular chamber dimension is normal. Right ventricular systolic function is normal. Left Atrium Left atrial chamber dimension is normal. Right Atrium Right atrial chamber dimension is normal. Aortic Valve There is no aortic valve stenosis with a peak velocity of 140 cm/s, mean gradient of 5 mmHg, and aortic valve area of 2.5 cm2. There is no aortic valve regurgitation. Aortic valve is not well visualized. Pulmonic Valve Pulmonary valve is not well visualized. Mitral Valve The mitral valve has a calcified annulus. There is no mitral valve stenosis. There is trace mitral valve regurgitation. Tricuspid Valve The tricuspid valve leaflets are normal. There is no tricuspid valve stenosis. There is mild tricuspid valve regurgitation. Unable to estimate pulmonary artery systolic pressure due to inadequate tricuspid regurgitant envelope. Pericardium/Pleural The pericardium appears normal. There is no pericardial effusion. No pleural effusion visualized. Inferior Vena Cava Normal inferior vena cava with >50% collapse upon inspiration consistent with normal right atrial pressure, 8 mmHg. Aorta The aortic measurements are indexed to age and body surface area. The aortic root at the sinus of Valsalva is not well visualized. The prox ascending aorta is not well visualized. Summary 1. Left ventricle size is normal and systolic function is normal. Estimated ejection fraction is 55-60%. There is grade I diastolic dysfunction. 2. Right ventricle chamber size is normal and systolic function is normal. Estimated RVSP is 20 mmHg. 3. Mild MAC, Trace TR. 4. Prior study from 08/18/2024. Report Signatures Finalized by Keenan Estrada on 04/20/2025 08:23 PM
== END | disposition home or self-care (01) ==
PROVIDERS: PCP Family Medicine; Referring Provider Internal Medicine Hematology & Oncology; Visit Provider Internal Medicine Hematology & Oncology
DX: I50.30 Unspecified diastolic (congestive) heart failure (principal); I07.1 Rheumatic tricuspid insufficiency; C50.112 Malignant neoplasm of central portion of left female breast
CPT/HCPCS: 93306

== ENCOUNTER 2025-04-28 13:27 | Outpatient (RCR) | payer MEDICAID, SELFPAY ==
--- NOTE | 2025-04-20 10:19 | CTCFLWUP_ITS ---
[facility] [address] [place], [place] [address] FOLLOW-UP NOTE Date: 04/20/2025 MR#: [id number] Name: SUBHASH OSEGUERA : 1975 Dx: C50.112 Malignant neoplasm of central portion of left female breast Identification. Patient with T2 sized left retroareolar breast lesion HER2 negative by FISH. Completed neoadjuvant chemo AC Taxol 12 weeks Surgery performed left mastectomy 02/08/2025. Revealing T2 N2 cancer with 4 positive sentinel nodes after neoadjuvant chemo. Underwent excision of the left axillary contents 03/22/2025 revealing 1 of 18 lymph nodes positive for met CA with metastatic focus measuring at least 0.7 cm in greatest dimension and positive for focal extranodal extension less than 0.1 mm in linear dimension consisting of rare cluster of malignant cells. There were previously 4 lymph nodes with prashanth capsular lymphovascular invasion. Thus now 5 total with mets of 18 removed.. ER positive UT positive HER2/elio negative Ki67 30%. Posttreatment MRI shows enhancing tissue in the left lateral retroareolar region extending posterior and lateral. This reportedly was performed recently at [facility]. Port which reportedly has been kinked and not working had to be removed. As I examine her left chest wall appears to be healing well. No gross tumor recurrence axillary or supra Clav involvement. A#1. History of local regionally advanced left breast CA, status post neoadjuvant chemo followed by left breast mastectomy 02/08/2025, Siddharth Noland MD A#2. T2 sized residual invasive carcinoma with 4 positive nodes [id number] ER/UT positive HER2 negative Ki-67 30% A#3. Additional surgery, 03/22/2025 completion left axillary neck dissection 1 positive node of 18 removed. Hence total of 5 positive nodes including from prior surgery. A#4. Port was removed due to reported kinking of and no longer useful. A#5. Dr. Serrano medical oncologist will see her soon.. A#6 Review postop MRI performed at [facility]. A#7. Postop radiation therapy to the chest wall and regional prashanth sites 4500- 5000cGy with E boost to the scar. This will take about 6 to 7 weeks. Side effects explained to patient consent signed. Patient told to avoid . Cc: Siddharth Noland MD Electronically signed by: Chau Hickey M.D. 04/20/2025 10:17 AM High school High school requires counseling Why IS a holiday Bharati okay corrects
--- NOTE | 2025-04-20 10:20 | CTCTXPLN_ITS ---
[facility] [address] [place], [place] [address] Physician Clinical Treatment Planning Note Date of Service: 04/20/2025 Name: SUBHASH OUMAR Gutiérrez.: 1975 The patient has agreed to proceed with Radiation therapy. Tests and supporting medical records were interpreted to assist in defining the tumor location and extent of disease. Further imaging will be necessary to contour and delineate the volume to which the XRT will be provided. A. Treatment Intent: Curative B. Modality: Mixed C. Requested Technique: 3D D. Treatment Site: Left chest wall supra Gagandeep axillary E. Critical structures to be contoured on plan: F. In order to accomplish this plan, I am ordering/Prescribing the followin. Simulations (s) will be performed to accomplish a reproducible treatment position, to determine optimal treatment portals/beam arrangements, to design beam modifying devices and verify treatment portals on patient prior to the commencement of Radiation Therapy. Left chest 2. Devices; for immobilization and beam shaping: Vac-Lisa 3. CT Guidance for placement of XRT keen Scan area: 4. Portal images Frequency: 5. Invivo transit dose measurement once per week on all VMAT patients. 6. Special Physics Consult Requested for: 7. Other requests: Special procedure chemoradiation G. Dose Objectives: Curative Electronically signed by: Chau Hickey M.D. 04/20/2025 10:18 AM
--- NOTE | 2025-04-20 10:25 | CTCTXPLNST_ITS ---
Radiation Oncology Treatment Planning Sheet Name: SUBHASH OSEGUERA MR#: [id number] : 1975 Dx: C50.112 Malignant neoplasm of central portion of left female breast Date of Service: 04/20/2025 Account #: ?? Pt Treatment Intent: curative palliative other: Stage: Procedure CPT # Ordered Spec. Procedure 10218 1 Feliz Complex (set-up) 79448 L chest wall/E boost 2 Feliz Simple 94548 1 IMRT Plan 12446 MLC Devices VMAT 93349 Feliz 3 D 17887 1 TRTMT dev Complex 72756 Vaklok/2 stratton/scax/pabE boost 6 TRTMT dev simple 19009 3 mm bolus 1 Basic Jaspal 04422 7 Special Dosimetry 74437 Spec Physics 92426 Port Films 50477 5 SRS Cranial/1FX 15561 SBR 5 FX or Less /ex: 5 = 5 fx 57781 IMRT Simple 37958 IMRT Complex 85661 IGRT 65454 Rad del Physicians Formula 6-10 39540 Rad del Physicians Formula 11- 04924 6300 35 Cont Med Physics 65712 7 Treatment Planning 99281 1 Weekly Evaluation 05339 7 Rad del Physicians Formula 20 mev 94879 Special Port Plan 25250 TRTMT dev inter 22004 Isodose Complex 23555 Isodose simple 32308 Resp Motion Mgmt Simulation 66234 Placement of Fiducial Markers 46091 Electronically Signed By: Chau Hickey MD, GALR 04/20/2025 10:22 AM
== END 2025-05-12 23:59 | disposition home or self-care (01) ==
LOC: SCTC 13:27
PROVIDERS: PCP Nurse Practitioner Family; Referring Provider Nurse Practitioner Family; Visit Provider Internal Medicine Hematology & Oncology
DX: Z51.0 Encounter for antineoplastic radiation therapy (principal); C50.112 Malignant neoplasm of central portion of left female breast; C77.3 Secondary and unspecified malignant neoplasm of axilla and upper limb lymph nodes; Z17.0 Estrogen receptor positive status [ER+]; Z17.21 Progesterone receptor positive status; Z17.32 Human epidermal growth factor receptor 2 negative status; Z92.21 Personal history of antineoplastic chemotherapy; Z90.12 Acquired absence of left breast and nipple
CPT/HCPCS: 77014; 77290; 77300; 77334; 77387; 77470; 99212; 99213; G0463